=== PATIENT | female | born 1940 | race Caucasian/White ===

== ENCOUNTER 2016-04-24 11:16 | Day surgery (SDC) | payer MEDICARE ==
[2016-04-19 11:33] VITALS: BMI 23.3
[~2016-04-24 11:16] MED LIST: LACTATED RINGERS 1,000 ML IV SCH
[2016-04-24] MEDS ORDERED: LIDOCAINE 1% 20 ML VIAL (10MG/ML) FOR IV START INTRADERMA ONE (11:43)
--- NOTE | 2016-04-24 12:33 | CT ---
EXAMINATION TYPE: CT Chest malissa Pretty Protocol DATE OF EXAM: 04/24/2016 12:18 PM COMPARISON: NONE HISTORY: Solitary Lung Nodule CT DLP: [address] of the chest was performed with lung and mediastinal window settings submitted. The la ck of contrast limits evaluation of the vascular, mediastinal and parenchymal structures including th e upper abdomen. LUNGS: The lungs are hyperinflated compatible with COPD. Mild upper lobe emphysematous changes and bi apical scarring. Mild scattered subpleural fibrosis. Small focal infiltrate within the lingula adjace nt to the cardiac border. 3 mm subpleural pulmonary nodule right upper lobe as well as right middle l obe. No additional nodules identified with certainty. MEDIASTINUM/GABI: Thoracic aorta is of normal caliber with limited evaluation given lack of contrast . Atheromatous changes thoracic aorta. The heart is not enlarged. No evidence for mediastinal mass. No lymph nodes greater than 1cm. UPPER ABDOMEN: Renal cystic changes. Small sliding-type hiatal hernia. OTHER: No significant other abnormality. IMPRESSION: 1. Scattered emphysematous changes. 2. Small focal infiltrate within the lingula. Scattered nonspecific subpleural nodularity.
[2016-04-24] MEDS ORDERED: NEOSTIGMINE 1 MG/ML 10 ML VIAL ONE (12:59)
[2016-04-24] MEDS ORDERED: PROPOFOL 10 MG/ML 20 ML VIAL IV ONE (12:59)
[2016-04-24] MEDS ORDERED: SUCCINYLCHOLINE CHLORIDE 100 MG/5 ML SYR IV ONE (12:59)
[2016-04-24] MEDS ORDERED: ROCURONIUM BROMIDE 10 MG/ML 10 ML VIAL IV ONE (12:59)
[2016-04-24] MEDS ORDERED: GLYCOPYRROLATE 0.2 MG/ML 2 ML VIAL ONE (12:59)
[2016-04-24] MEDS ORDERED: fentaNYL (PF) 50 MCG/ML 2 ML AMP ONE (12:59)
[2016-04-24] MEDS ORDERED: LIDOCAINE 1% INJ 10MG/ML (20 ML MDV) ONE (12:59)
[2016-04-24] MEDS ORDERED: MIDAZOLAM 2 MG/2 ML VIAL ONE (12:59)
[2016-04-24] MEDS ORDERED: LACTATED RINGERS 1,000 ML IV ONE (14:26)
[2016-04-24 14:58] VITALS: TEMP 97.2
[2016-04-24 15:16] VITALS: RESP 16
--- NOTE | 2016-04-24 15:45 | XR ---
EXAMINATION TYPE: XR chest 1V portable DATE OF EXAM: 04/24/2016 3:05 PM COMPARISON: NONE INDICATION: Post left lingular biopsy TECHNIQUE: Single frontal view of the chest is obtained. FINDINGS: The heart size is normal. The pulmonary vasculature is normal. Infiltrate is present to the left lung base. Minimal infiltrate may be along the right base. A small left apical pneumothorax is present. Report was called to Dr. Peña by Dr. Redd by telepho ne 1540 hours 05/06/2016. IMPRESSION: 1. Left apical pneumothorax. 2. Left lower lobe infiltrate.
[2016-04-24 16:16] VITALS: BP 119/58; PULSE 72
--- NOTE | 2016-04-24 18:57 | PCN ---
PROCEDURE: Navigational bronchoscopy. It is done in the operating room under general anesthesia. PREOPERATIVE DIAGNOSIS: Mass, lingula. Rule out cancer. POSTOPERATIVE DIAGNOSIS: Mass, lingula. Rule out cancer. Procedure was done by Dr. Loomis and myself. Again it was done in the operating room under general anesthesia. Once the patient was adequately anesthetized by the regional environmental manager and the anesthesiologist, the bronchoscope was placed through the bronchoscope adapter connected to the endotracheal tube. Under electromagnetic navigational localization, biopsies were done in the lingula. We did at least 8 or 9 biopsies. Next, washes were done in the lingula. The patient seemed to tolerate the procedure well. There was minimal bleeding. There was no immediate complication. The patient was stable throughout the procedure. Afterward, the patient will have a chest x-ray to rule out pneumothorax. If everything is good, she can be discharged. Will follow up with her in the office.
[2016-04-24 20:35] LABS: RBC, Body Fluid 7100 /uL
== END 2016-04-24 16:40 | disposition home or self-care (01) ==
LOC: ORWHC2ENDO 11:16
PROVIDERS: ATTEND Internal Medicine Critical Care Medicine
DX: J93.9 Pneumothorax, unspecified (principal); R91.1 Solitary pulmonary nodule; R91.8 Other nonspecific abnormal finding of lung field; J44.9 Chronic obstructive pulmonary disease, unspecified; F17.200 Nicotine dependence, unspecified, uncomplicated; E03.9 Hypothyroidism, unspecified; Z79.82 Long term (current) use of aspirin; Z79.899 Other long term (current) drug therapy
CPT/HCPCS: 87798 ×4; 87496; 87498; 87529 ×2; 88108; 88305; 89050; 87252; 87502 ×2; 87070; 87205; 87116; 87102; 87206; 71010; 71250; 31625; 31627; J2250; J2710; J2001; J3010; J0330; J2704; 31624

== ENCOUNTER 2018-11-20 15:28 | Inpatient (IN) | payer MEDICARE ==
[2018-11-20] MEDS: HEPARIN SOD,PORK IN 0.45% NACL 25,000 UNIT in 0.45% NACL 1 250ML.BAG IV SCH (16:09)
--- NOTE | 2018-11-20 16:09 | ED ---
Chest Pain HPI - General Chief Complaint: Chest Pain Stated Complaint: chest pressure Time Seen by Provider: 11/20/18 15:35 Source: patient, EMS Limitations: no limitations - History of Present Illness Initial Comments: Patient is a 78-year-old female who is a care from [facility] for chest pain. Patient reports that she has had intermittent chest pain since yesterday. Denies a history of cardiac disease. At [facility] she did undergo laboratory studies and a chest x-ray. It was found that her troponin was 4.6. EKG demonstrated slight ST elevation however nothing that the physician felt he could call as a STEMI. He did call and discuss the case with Dr. López who in turn discussed the case with Dr. Perez prior to hospital arrival. Patient was heparinized and transferred in pain-free condition. The patient does arrive and states that she is pain-free at this time. Denies a history of cough, congestion, fevers or chills. No nausea or vomiting. No ripping or tearing sensation to her back. No history of DVTs or PEs. Denies any shortness of breath. No other alleviating, precipitating or modifying factors - Related Data Home Medications Medication Instructions Recorded Confirmed Aspirin 81 mg PO AC-LUNCH 04/19/16 11/20/18 Calcium Carbonate [Calcium] 1,200 mg PO AC-LUNCH 11/20/18 11/20/18 Cholecalciferol (Vitamin D3) 2,000 unit PO AC-LUNCH 11/20/18 11/20/18 [Vitamin D3] Levothyroxine Sodium [Synthroid] 112 mcg PO DAILY 11/20/18 11/20/18 Previous Rx's Medication Instructions Recorded Atorvastatin [Lipitor] 40 mg PO DAILY 30 Days #30 tab 11/23/18 Clopidogrel [Plavix] 75 mg PO DAILY 30 Days #30 tab 11/23/18 Losartan [Cozaar] 12.5 mg PO HS 30 Days #30 tab 11/23/18 Metoprolol Tartrate [Lopressor] 12.5 mg PO BID 60 Days #60 tab 11/23/18 Allergies Allergy/AdvReac Type Severity Reaction Status Date / Time No Known Allergies Allergy Verified 11/20/18 16:22 Review of Systems ROS Statement: Those systems with pertinent positive or pertinent negative responses have been documented in the HPI. ROS Other: All systems not noted in ROS Statement are negative. EKG Findings - EKG Comments: EKG Findings:: EKG demonstrates a sinus bradycardia with a ventricular rate of 55. GA interval 186. QRS E4. QTC 438. There is some minimal ST elevation in leads 2, 3, aVF. No reciprocal changes. Past Medical History Past Medical History: COPD, Deep Vein Thrombosis (DVT), Thyroid Disorder Additional Past Medical History / Comment(s): emphysema and area in lung found on ct scan,freq cough,hx dvt lt leg approx 10 yrs History of Any Multi-Drug Resistant Organisms: None Reported Past Surgical History: Tonsillectomy, Tubal Ligation Additional Past Surgical History / Comment(s): nodules removed from thryoid,jey cataracts Past Anesthesia/Blood Transfusion Reactions: No Reported Reaction Additional Past Anesthesia/Blood Transfusion Reaction / Comment(s): no hx blood transfusion Past Psychological History: No Psychological Hx Reported Smoking Status: Current every day smoker Past Alcohol Use History: None Reported Past Drug Use History: None Reported - Past Family History Mother Family Medical History: Coronary Artery Disease (CAD), Hypertension Additional Family Medical History / Comment(s): CABG,breathing problems, with complications of fx back Daughter(s) Family Medical History: Myocardial Infarction ([place]) Additional Family Medical History / Comment(s): at age 45 Father Additional Family Medical History / Comment(s): alcoholism General Exam Limitations: no limitations General appearance: alert, in no apparent distress Head exam: Present: atraumatic, normocephalic, normal inspection Eye exam: Present: normal appearance, PERRL, EOMI. Absent: scleral icterus, conjunctival injection, periorbital swelling ENT exam: Present: normal exam, mucous membranes moist Neck exam: Present: normal inspection. Absent: tenderness, meningismus, lymphadenopathy Respiratory exam: Present: normal lung sounds bilaterally. Absent: respiratory distress, wheezes, rales, rhonchi, stridor Cardiovascular Exam: Present: regular rate, normal rhythm, normal heart sounds. Absent: systolic murmur, diastolic murmur, rubs, gallop, clicks GI/Abdominal exam: Present: soft, normal bowel sounds. Absent: distended, tenderness, guarding, rebound, rigid Extremities exam: Present: normal inspection, full ROM, normal capillary refill. Absent: tenderness, pedal edema, joint swelling, calf tenderness Back exam: Present: normal inspection Neurological exam: Present: alert, oriented X3, CN II-XII intact Psychiatric exam: Present: normal affect, normal mood Skin exam: Present: warm, dry, intact, normal color. Absent: rash Course Vital Signs 11/20/18 11/20/18 11/20/18 15:30 16:00 17:26 Temperature 98.6 F Pulse Rate 61 57 L 57 L Respiratory 18 18 18 Rate Blood Pressure 143/60 143/60 143/62 O2 Sat by Pulse 98 99 97 Oximetry 11/20/18 18:12 Temperature 98.6 F Pulse Rate 57 L Respiratory 18 Rate Blood Pressure 143/62 O2 Sat by Pulse 97 Oximetry Chest Pain MDM - MDM Upon arrival the patient is placed into room 4. A thorough history and physical exam was performed. I did obtain laboratory studies.. I reviewed the patient's transfer record. Dr. López does present to the emergency room and evaluates the patient. He does talk to Dr. Perez who states the patient needs to remain on a heparin drip. I do reordered heparin drip. Troponin on reevaluation here shows a value of 2.8. This is improved from patient's value of 4.[address] admission orders. The patient was transported to the floor in stable condition Disposition Clinical Impression: Acute non-ST elevation myocardial infarction (NSTEMI), Chest pain Disposition: ADMITTED IP TO THIS HOSP Condition: Stable Is patient prescribed a controlled substance at d/c from ED?: No Decision to Admit Reason: Admit from EC Decision Date: 11/20/18 Decision Time: 17:30
[2018-11-20] MEDS ORDERED: HEPARIN SODIUM,PORCINE 5,000 UNIT/ML 1 ML VIAL IV PRN (16:11)
[2018-11-20 16:12] LABS: Basophils # (A) 0.2 k/uL (0-0.2); Basophils % (A) 3 %; Eosinophils # (A) 0.1 k/uL (0-0.7); Eosinophils % (A) 2 %; HCT 41.5 % (34.0-46.0); HGB 13.4 gm/dL (11.4-16.0); Lymphocytes # (A) 2.3 k/uL (1.0-4.8); Lymphocytes % (A) 34 %; MCH 31.2 pg (25.0-35.0); MCHC 32.4 g/dL (31.0-37.0); MCV 96.4 fL (80.0-100.0); Mean Platelet Volume 7.1; Monocytes # (A) 0.4 k/uL (0-1.0); Monocytes % (A) 6 %; Neutrophils # (A) 3.7 k/uL (1.3-7.7); Neutrophils % (A) 55 %; Platelet Count 198 k/uL (150-450); RDW 13.8 % (11.5-15.5); WBC 6.8 k/uL (3.8-10.6)
[2018-11-20] MEDS ORDERED: ATORVASTATIN 80 MG TAB PO STA (16:28)
--- NOTE | 2018-11-20 16:35 | P.HPIM ---
History of Present Illness Patient is a pleasant 78-year-old female came in with complaints of chest pressure on and off last for few minutes to about an hour nonexertional no radiation no associated shortness of breath or diaphoresis patient did feel like she has hot flashes. Patient was seen in [facility] found to have ST elevation of about 0.5-1 mm in inferior lead lead 3. Patient is being heparinized did discuss with the cardiology. Patient does smoke about 10-15 cigarettes a day. Patient's TSH is the elevated patient was recently started on levothyroxine patient believes she has a blood clot in the lung and the patient had history of DVT in the past 3 years ago not on any anti-correlation at this time. Review of Systems REVIEW OF SYSTEMS: CONSTITUTIONAL: No fever, no malaise, no fatigue. HEENT: No recent visual problems or hearing problems. Denied any sore throat. CARDIOVASCULAR: No orthopnea, PND, no palpitations, no syncope. PULMONARY: No shortness of breath, no cough, no hemoptysis. GASTROINTESTINAL: No diarrhea, no nausea, no vomiting, no abdominal pain. NEUROLOGICAL: No headaches, no weakness, no numbness. HEMATOLOGICAL: Denies any bleeding or petechiae. GENITOURINARY: Denies any burning micturition, frequency, or urgency. MUSCULOSKELETAL/RHEUMATOLOGICAL: Denies any joint pain, swelling, or any muscle pain. ENDOCRINE: Denies any polyuria or polydipsia. The rest of the 14-point review of systems is negative. Past Medical History Past Medical History: COPD, Deep Vein Thrombosis (DVT), Thyroid Disorder Additional Past Medical History / Comment(s): emphysema and area in lung found on ct scan,freq cough,hx dvt lt leg approx 10 yrs History of Any Multi-Drug Resistant Organisms: None Reported Past Surgical History: Tonsillectomy, Tubal Ligation Additional Past Surgical History / Comment(s): nodules removed from thryoid,jey cataracts Past Anesthesia/Blood Transfusion Reactions: No Reported Reaction Additional Past Anesthesia/Blood Transfusion Reaction / Comment(s): no hx blood transfusion Past Psychological History: No Psychological Hx Reported Smoking Status: Current every day smoker Past Alcohol Use History: None Reported Past Drug Use History: None Reported - Past Family History Mother Family Medical History: Coronary Artery Disease (CAD), Hypertension Additional Family Medical History / Comment(s): CABG,breathing problems, with complications of fx back Daughter(s) Family Medical History: Myocardial Infarction ([place]) Additional Family Medical History / Comment(s): at age 45 Father Additional Family Medical History / Comment(s): alcoholism Medications and Allergies Home Medications Medication Instructions Recorded Confirmed Type Aspirin 81 mg PO AC-LUNCH 04/19/16 11/20/18 History Calcium Carbonate [Calcium] 1,200 mg PO AC-LUNCH 11/20/18 11/20/18 History Cholecalciferol (Vitamin D3) 2,000 unit PO AC-LUNCH 11/20/18 11/20/18 History [Vitamin D3] Levothyroxine Sodium [Synthroid] 112 mcg PO DAILY 11/20/18 11/20/18 History Allergies Allergy/AdvReac Type Severity Reaction Status Date / Time No Known Allergies Allergy Verified 11/20/18 16:22 Physical Exam Vitals: Vital Signs Temp Pulse Resp BP Pulse Ox 11/20/18 16:00 57 L 18 143/60 99 11/20/18 15:30 98.6 F 61 18 143/60 98 Intake and Output 11/20/18 11/20/18 11/20/18 06:59 14:59 22:59 Other: Weight 65.771 kg PHYSICAL EXAMINATION: GENERAL: The patient is alert and oriented x3, not in any acute distress. Well developed, well nourished. HEENT: Pupils are round and equally reacting to light. EOMI. No scleral icterus. No conjunctival pallor. Normocephalic, atraumatic. No pharyngeal erythema. No thyromegaly. CARDIOVASCULAR: S1 and S2 present. No murmurs, rubs, or gallops. PULMONARY: Chest is clear to auscultation, no wheezing or crackles. ABDOMEN: Soft, nontender, nondistended, normoactive bowel sounds. No palpable organomegaly. MUSCULOSKELETAL: No joint swelling or deformity. EXTREMITIES: No cyanosis, clubbing, or pedal edema. NEUROLOGICAL: Gross neurological examination did not reveal any focal deficits. SKIN: No rashes. Results CBC & Chem 7: 11/20/18 16:00 Assessment and Plan Plan: -Acute non-ST elevation myocardial infarction: Patient will be heparinized repeat EKG close monitoring, Nitropaste. Patient's heart rate is in 50s because of which I'm not in her on the briana. Patient received [facility] aspirins at [facility]. -Nicotine abuse: Counseling was provided -Hypothyroidism patient was recently started on levothyroxine which will be resumed -History of DVT in the past presently not on any anticoagulation -COPD without any acute exacerbation
[2018-11-20] MEDS ORDERED: NITROGLYCERIN 0.1MG/HR PATCH TRANSDERM ONE (16:45)
[2018-11-20] MEDS ORDERED: NALOXONE 0.4 MG/ML 1 ML VIAL IV PRN (17:31)
[2018-11-20 17:49] LABS: ALT 20 U/L (9-52); AST 61 U/L (14-36); African American GFR (CKD) >90 (>60 ml/min/1.73 sqM); Albumin 3.7 g/dL (3.5-5.0); Alkaline Phosphatase 55 U/L (38-126); Anion Gap 5 mmol/L; Blood Urea Nitrogen 14 mg/dL (7-17); Calcium 8.5 mg/dL (8.4-10.2); Carbon Dioxide 27 mmol/L (22-30); Chloride 106 mmol/L (98-107); Glucose 93 mg/dL (74-99); Non-African American GFR(CKD) 86 (>60 ml/min/1.73 sqM); Sodium 138 mmol/L (137-145); Total Bilirubin 0.6 mg/dL (0.2-1.3); Total Protein 6.8 g/dL (6.3-8.2)
[2018-11-20 17:55] LABS: Potassium 4.7 mmol/L (3.5-5.1)
[2018-11-20 18:47] LABS: T4, Free (Free Thyroxine) 1.28 ng/dL (0.78-2.19)
[2018-11-21] MEDS: LEVOTHYROXINE 112 MCG TAB PO SCH (06:30)
[2018-11-21 06:32] LABS: Basophils % (A) 0 %; Eosinophils % (A) 0 %; HCT 39.8 % (34.0-46.0); HGB 13.1 gm/dL (11.4-16.0); Lymphocytes # (A) 1.5 k/uL (1.0-4.8); Lymphocytes % (A) 19 %; MCV 97.1 fL (80.0-100.0); Mean Platelet Volume 6.2; Monocytes # (A) 0.6 k/uL (0-1.0); Monocytes % (A) 8 %; Neutrophils # (A) 5.9 k/uL (1.3-7.7); Neutrophils % (A) 72 %; Platelet Count 175 k/uL (150-450); RDW 13.6 % (11.5-15.5); WBC 8.1 k/uL (3.8-10.6)
[2018-11-21 07:22] LABS: African American GFR (CKD) >90 (>60 ml/min/1.73 sqM); Anion Gap 4 mmol/L; Blood Urea Nitrogen 14 mg/dL (7-17); Calcium 8.2 mg/dL (8.4-10.2); Carbon Dioxide 27 mmol/L (22-30); Chloride 106 mmol/L (98-107); Glucose 109 mg/dL (74-99); Non-African American GFR(CKD) 85 (>60 ml/min/1.73 sqM); Potassium 4.3 mmol/L (3.5-5.1); Sodium 137 mmol/L (137-145)
[2018-11-21] MEDS: METOPROLOL TARTRATE 12.5 MG TAB PO SCH ×2 (08:00→21:11)
[2018-11-21] MEDS: ATORVASTATIN 40 MG TAB PO SCH (08:00)
[2018-11-21] MEDS: ASPIRIN 81 MG PO SCH (08:00)
--- NOTE | 2018-11-21 08:31 | P.PN ---
Subjective 78-year-old presents female admitted for non-ST elevation myocardial probably inferior wall FL, will undergo cardiac catheterization today. Extensive Schmitz cessation counseling was provided today as well. Constitutional: Denied any fatigue denied any fever. Cardio vascular: denied any chest pain, palpitations Gastrointestinal denied any nausea vomiting Pulmonary: Denied any shortness of breath cough Neurologic denied any new focal deficits All inpatient medications were reviewed and appropriate changes in these medications as dictated in the interval history and assessment and plan. Objective - Vital Signs Vital signs: Vital Signs Temp 99 F 11/21/18 08:00 Pulse 61 11/21/18 08:00 Resp 18 11/21/18 08:00 BP 100/48 11/21/18 08:00 Pulse Ox 92 L 11/21/18 08:00 Intake & Output 11/20/18 11/21/18 11/21/18 18:59 06:59 18:59 Intake Total 281.302 Balance 281.302 Weight 65.771 kg 65.2 kg Intake: Intake, IV Titration 61.302 Amount Heparin Sod,Pork in 0.45% 61.302 NaCl 25,000 unit In 0.45 % NaCl 1 250ml.bag @ 12 UNITS/KG/HR 7.893 mls/hr IV .Q24H CORRINE Rx#: [id number] Oral 220 Other: Voiding Method Toilet # Voids 2 - Exam PHYSICAL EXAMINATION: GENERAL: The patient is alert and oriented x3, not in any acute distress. Well developed, well nourished. HEENT: Pupils are round and equally reacting to light. EOMI. No scleral icterus. No conjunctival pallor. Normocephalic, atraumatic. No pharyngeal erythema. No thyromegaly. CARDIOVASCULAR: S1 and S2 present. No murmurs, rubs, or gallops. PULMONARY: Chest is clear to auscultation, no wheezing or crackles. ABDOMEN: Soft, nontender, nondistended, normoactive bowel sounds. No palpable organomegaly. MUSCULOSKELETAL: No joint swelling or deformity. EXTREMITIES: No cyanosis, clubbing, or pedal edema. NEUROLOGICAL: Gross neurological examination did not reveal any focal deficits. SKIN: No rashes. - Labs CBC & Chem 7: 11/21/18 06:06 11/21/18 06:06 Labs: Abnormal Lab Results - Last 24 Hours (Table) 11/20/18 11/20/18 11/20/18 Range/Units 17:02 17:02 22:59 APTT 37.8 H (22.0-30.0) sec Glucose (74-99) mg/dL Calcium (8.4-10.2) mg/dL AST 61 H (14-36) U/L Troponin I 2.830 H* (0.000-0.034) ng/mL TSH 11.000 H (0.465-4.680) mIU/L 11/20/18 11/21/18 11/21/18 Range/Units 22:59 06:06 06:06 APTT 66.2 H (22.0-30.0) sec Glucose 109 H (74-99) mg/dL Calcium 8.2 L (8.4-10.2) mg/dL AST (14-36) U/L Troponin I 3.150 H* (0.000-0.034) ng/mL TSH (0.465-4.680) mIU/L Assessment and Plan Plan: -Acute non-ST elevation myocardial infarction: Patient will be heparinized repeat EKG close monitoring, Nitropaste. Will undergo cardiac catheterization as mentioned above and the echocardiogram will be obtained -Nicotine abuse: Counseling was provided -Hypothyroidism patient was recently started on levothyroxine which will be resumed patient's TSH remains high in expected to improve in few weeks -History of DVT in the past presently not on any anticoagulation -COPD without any acute exacerbation
[2018-11-21] MEDS ORDERED: ASPIRIN 325 MG TAB PO SCH (09:00)
--- NOTE | 2018-11-21 10:22 | XR ---
EXAMINATION TYPE: XR chest 1V portable DATE OF EXAM: 11/21/2018 HISTORY: sob. REFERENCE: Previous study dated 11/20/2018. FINDINGS: Lung volumes are prominent. There is some scarring or atelectasis present at the left lung base. Lungs otherwise clear. Pleural spaces are clear. IMPRESSION: NO SIGNIFICANT INTERVAL CHANGE IN THE APPEARANCE OF THE CHEST.
--- NOTE | 2018-11-21 11:02 | CONS ---
CONSULTATION Enriqueta Jones is a 78-year-old lady who smokes about 1 to 2 packs a day. She does not have any significant past medical history other than a recent diagnosis of hyperthyroidism for which she received radioiodine therapy and is now being supplemented with Synthroid. She is slightly hypothyroid. She was transferred from [place] after being seen with an abnormal EKG and troponin elevation. This lady had does not have any major medical problems. She considers herself healthy, but smokes on a regular basis. On last Friday about more than 48 hours ago while she was watching TV and playing with the grand kids, she developed chest pressure that lasted pretty much all day and also somewhat into as well. Because of the ongoing chest pressure, she did not seek any medical attention. She thought it will go away on its own. Subsequently on Friday, she went and saw her primary care physician who performed the EKG and transferred her to [facility]. It appears that she had an infarction involving the inferior wall on Friday that is more than 48 hours ago. She is pain free at this time. She is comfortable resting but EKG clearly shows Q- waves in inferior leads with the ST abnormalities suggestive of a recent subacute infarction. She had some chest pain yesterday suggestive of post infarction angina, but right now she is comfortable and resting. PAST MEDICAL HISTORY: 1. Hyperthyroidism status post radioiodine therapy on Synthroid. 2. History of smoking and COPD. MEDICATIONS: Medications at home include Synthroid 112 mcg daily, vitamin supplements, and aspirin 81 mg daily. ALLERGIES: None. REVIEW OF SYSTEMS: Unremarkable other than the above-mentioned facts. PHYSICAL EXAMINATION: On examination, blood pressure is 112/78, pulse rate is 64 per minute, regular. HEENT: Unremarkable. Fundus was not examined by me. Neck is supple. No JVD. I do not hear a carotid bruit. Heart exam reveals S1, S2 heard normally. There is no significant murmur or gallop. Lungs are clear. Abdomen is soft, nontender. Lower extremities reveal normal pulses. No edema. Central nervous system is normal. EKG revealed a sinus rhythm, evidence of inferior AR with ST changes suggestive of a subacute inferior wall myocardial infarction with minor right ventricular conduction delay. Troponin level initially was 4. It is now 2.8 and 3.1, suggestive of recent AR. D- dimer was normal. IMPRESSION: 1. Subacute inferior wall myocardial infarction with evidence of Q-waves and post infarction angina. 2. Hyperthyroidism, status post radioiodine therapy, now on Synthroid. 3. History of smoking. RECOMMENDATIONS: I am recommending that we continue the IV heparin drip. I will add Lopressor 12.5 mg b.i.d., losartan 25 mg daily, Lipitor 40 mg daily, perform an echocardiogram, reduce aspirin to 81 mg daily, and given her post infarction angina, I will perform coronary angiography either today or tomorrow. Discussed my thoughts in detail with the patient, explained her the rationale, risks, benefits, options related to cardiac cath. She understands all details and wishes to proceed. MMODL / IJN: [id number] /
[2018-11-21] MEDS ORDERED: IV FLUID CONTINUATION 950 ML IV ONE (12:54)
[2018-11-21] MEDS ORDERED: MIDAZOLAM PF (FBP) 2 MG/2 ML VIAL IVP ONE (12:58)
[2018-11-21] MEDS ORDERED: LIDOCAINE 1% INJ 10MG/ML (20 ML MDV) SQ ONE ×2 (13:01→13:04)
[2018-11-21] MEDS ORDERED: VERAPAMIL SYRINGE (5 MG/10 ML) INTRAARTER ONE (13:05)
[2018-11-21] MEDS ORDERED: HEPARIN SODIUM 1,000 UN/ML (10ML VL) IV ONE (13:06)
[2018-11-21] MEDS ORDERED: BIVALIRUDIN BOLUS 250 MG/50 ML IV ONE (13:30)
[2018-11-21] MEDS ORDERED: BIVALIRUDIN 250 MG in SODIUM CHLORIDE 0.9% 50 ML IV ONE (13:31)
[2018-11-21] MEDS ORDERED: IOPAMIDOL-370 150ML BTL INJ ONE (13:32)
[2018-11-21] MEDS ORDERED: NITROGLYCERIN 1000MCG/10ML SYRINGE INTRACORON ONE (13:43)
[2018-11-21] MEDS ORDERED: IOPAMIDOL-370 50ML BTL INJ ONE (13:48)
[2018-11-21] MEDS ORDERED: CLOPIDOGREL 75 MG TAB ONE (13:49)
[2018-11-21] MEDS ORDERED: CLOPIDOGREL 75 MG TAB PO ONE (13:50)
--- NOTE | 2018-11-21 13:58 | P.CNPUL ---
History of Present Illness Consult date: 11/21/18 Requesting physician: Shira López Reason for consult: dyspnea Chief complaint: Chest pressure, shortness of breath History of present illness: This is a very pleasant 78-year-old female patient who follows with CAMDEN Curiel. She has a history of DVT, hypothyroidism, chronic obstructive pulmonary disease, chronic and ongoing heavy tobacco dependence. She had been seen by Dr. Peña in the past. In 2017 she was found to have bilateral upper lobe nodules and she did undergo navigational bronchoscopy with biopsies that were negative for malignancy. There was still some suspicion and he ordered a PET scan which was negative regarding the lungs however there were uptake in the left kidney suspicious for renal cell carcinoma as well as in the left ovary and she was recommended both urology and oncology follow-up. He did give her a copy of the PET scan. She did not return to our office since August 2016. She was transferred here to the emergency room from [facility] yesterday with intermittent chest pain that started 2 days prior to her arrival. Labs and [place] revealed a troponin of 4.[address] elevation but not significant to be called a STEMI. She was placed on heparin and transferred here for the same. She had been seen and evaluated by cardiology and was felt to have had a inferior wall myocardial infarction greater than 48 hours ago. She is seen today in consultation on the selective care unit. She is currently awake and alert in no acute distress. Denies any worsening shortness of breath, cough or congestion. Chest x-ray shows some scarring versus atelectasis in the left lung base otherwise clear. White count 8.1. Hemoglobin 13.1. Creatinine 0.68. Troponin 2.83, 3.15. TSH 11.00. Free T4 1 0.28. She is currently noth ing by mouth for pending cardiac catheterization. Review of Systems REVIEW OF SYSTEMS: CONSTITUTIONAL: Denies any recent significant weight loss or weight gain. EYES: Denies change in vision. EARS, NOSE, MOUTH, THROAT: Denies headaches, denies sore throat. CARDIOVASCULAR: Positive for chest pain, no palpitations or syncopal episodes. RESPIRATORY: Positive for shortness of breath, cough, congestion no hemoptysis. GASTROINTESTINAL: Denies change in appetite, denies abdominal pain GENITOURINARY: Denies hematuria, denies infections. MUSKULOSKELETAL: Denies pain, denies swelling. INTEGUMENTARY: Denies rash, denies eczema. NEUROLOGICAL: Denies recent memory loss, no recent seizure activity. PSYCHIATRIC: Denies anxiety, denies depression. HEMATOLOGIC/LYMPHATIC: Denies anemia, denies enlarged lymph nodes. Past Medical History Past Medical History: COPD, Deep Vein Thrombosis (DVT), Thyroid Disorder Additional Past Medical History / Comment(s): emphysema and area in lung found on ct scan,freq cough,hx dvt lt leg approx 10 yrs History of Any Multi-Drug Resistant Organisms: None Reported Past Surgical History: Tonsillectomy, Tubal Ligation Additional Past Surgical History / Comment(s): nodules removed from thryoid,jey cataracts Past Anesthesia/Blood Transfusion Reactions: No Reported Reaction Additional Past Anesthesia/Blood Transfusion Reaction / Comment(s): no hx blood transfusion Past Psychological History: No Psychological Hx Reported Smoking Status: Current every day smoker Past Alcohol Use History: None Reported Past Drug Use History: None Reported - Past Family History Mother Family Medical History: Coronary Artery Disease (CAD), Hypertension Additional Family Medical History / Comment(s): CABG,breathing problems, with complications of fx back Daughter(s) Family Medical History: Myocardial Infarction ([place]) Additional Family Medical History / Comment(s): at age 45 Father Additional Family Medical History / Comment(s): alcoholism Medications and Allergies Home Medications Medication Instructions Recorded Confirmed Type Aspirin 81 mg PO AC-LUNCH 04/19/16 11/20/18 History Calcium Carbonate [Calcium] 1,200 mg PO AC-LUNCH 11/20/18 11/20/18 History Cholecalciferol (Vitamin D3) 2,000 unit PO AC-LUNCH 11/20/18 11/20/18 History [Vitamin D3] Levothyroxine Sodium [Synthroid] 112 mcg PO DAILY 11/20/18 11/20/18 History Allergies Allergy/AdvReac Type Severity Reaction Status Date / Time No Known Allergies Allergy Verified 11/20/18 16:22 Physical Exam Vitals: Vital Signs Temp Pulse Pulse Resp BP BP Pulse Ox 11/21/18 12:00 97.2 F L 65 18 97/56 94 L 11/21/18 08:00 99 F 61 18 100/48 92 L 11/21/18 04:34 97.8 F 66 18 93/46 94 L 11/20/18 23:57 98.1 F 61 16 112/78 95 11/20/18 20:20 98.2 F 79 20 126/78 95 11/20/18 20:11 98.2 F 79 18 126/78 96 11/20/18 18:12 98.6 F 57 L 18 143/62 97 11/20/18 17:26 57 L 18 143/62 97 11/20/18 16:00 57 L 18 143/60 99 11/20/18 15:30 98.6 F 61 18 143/60 98 Intake and Output 11/20/18 11/21/18 11/21/18 22:59 06:59 14:59 Intake Total 220 61.302 Balance 220 61.302 Intake: Intake, IV Titration 61.302 Amount Heparin Sod,Pork in 0.45% 61.302 NaCl 25,000 unit In 0.45 % NaCl 1 250ml.bag @ 12 UNITS/KG/HR 7.893 mls/hr IV .Q24H CORRINE Rx#: [id number] Oral 220 Other: Voiding Method Toilet Toilet Toilet # Voids 2 0 Weight 65.771 kg 65.2 kg GENERAL EXAM: Alert, pleasant 78-year-old female patient, comfortable in no apparent distress. On room air. HEAD: Normocephalic. EYES: Normal reaction of pupils, equal size. NOSE: Clear with pink turbinates. THROAT: No erythema or exudates. NECK: No masses, no JVD. CHEST: No chest wall deformity. LUNGS: Equal air entry with no crackles, wheeze, rhonchi or dullness. CVS: S1 and S2 normal with no audible murmur, regular rhythm. ABDOMEN: No hepatosplenomegaly, normal bowel sounds, no guarding or rigidity. SPINE: No scoliosis or deformity SKIN: No rashes CENTRAL NERVOUS SYSTEM: No focal deficits, tone is normal in all 4 extremities. EXTREMITIES: There is no peripheral edema. No clubbing, no cyanosis. Peripheral pulses are intact. Results - Laboratory Findings CBC and BMP: 11/21/18 06:06 11/21/18 06:06 PT/INR, D-dimer D-Dimer 0.57 mg/L FEU (<0.60) 11/20/18 16:00 Abnormal lab findings: Abnormal Labs 11/20/18 11/20/1819 17:02 17:02 22:59 APTT 37.8 H Glucose Calcium AST 61 H Troponin I 2.830 H* TSH 11.000 H 11/20/18 11/21/18 11/21/18 22:59 06:06 06:06 APTT 66.2 H Glucose 109 H Calcium 8.2 L AST Troponin I 3.150 H* TSH - Diagnostic Findings Chest x-ray: image reviewed Assessment and Plan Assessment: Impression: #1 Chest pain and a patient found to have a subacute inferior wall myocardial infarction with evidence of Q waves and post infarction angina. #2 Chronic and ongoing heavy tobacco dependence. #3 History of bilateral pulmonary nodules status post navigational bronchoscopy with biopsies negative for malignancy. PET scan in 2017 revealed no suspicious uptake in the lungs. #4 PET positive uptake in the left kidney suspicious for renal cell carcinoma in 2017. #5 PET positive uptake in the left ovary in 2017. #6 Hypothyroidism status post radioiodine therapy and maintained on Synthroid. Plan: The patient was seen and evaluated by Dr. Ramirez. She is currently stable from the pulmonary standpoint. Cardiac catheterization pending. She is educated regarding the importance of complete smoking cessation. NicoDerm patch will be offered. She should follow-up in our office post discharge once recovered and have repeat pulmonary function testing to evaluate the severity of her suspected COPD and make recommendations for her maintenance inhalers. In the interim, we'll continue to follow make further recommendations based on her clinical status. I, the cosigning physician, performed a history & physical examination of the patient. Lungs sounds are clear, diminished. Maintaining good O2 saturations in the 90s on room air. I discussed the assessment and plan of care with my nurse practitioner, Cari Loomis. I attest to the above consultation as dictated by her. Time with Patient: Greater than 30
[2018-11-21] MEDS: SODIUM CHLORIDE 0.9% 1,000 ML IV SCH (14:00)
--- NOTE | 2018-11-21 15:59 | CC ---
CARDIAC CATHETERIZATION REPORT DATE OF SERVICE: 11/21/2018 PROCEDURE: 1. Left heart catheterization and coronary angiography. 2. PTCA and stenting of mid RCA with a drug-eluting stent with excellent result. PERFORMED BY: Dr. Orlando Perez. Moderate conscious sedation time was 50 minutes. Patient was administered Versed. Oxygen saturation, hemodynamics and EKG were monitored closely. CLINICAL INFORMATION: Mrs. Enriqueta Jones is a 78-year-old lady with a past medical history of hypothyroidism following radioiodine ablation of her hyperthyroid gland. She came into the hospital upon transfer from the [place] with an inferior wall recent AL with Q- waves and ST elevation and had post infarction angina. It appears that her infarction was probably on Friday at least 48 hours or more ago. She had chest pain and went to her primary care physician on Friday, was sent here after doing an EKG. She was evaluated by me this morning and because of episodes of ongoing chest pressure on and off, which seems to be post infarction angina, I recommended coronary angiography and intervention based on findings. Echo revealed an inferior wall hypokinesia with ejection fraction of 45%. The risks, benefits, options and rationale were explained to the patient and family. After due discussion, they agree and wished to proceed. PROCEDURE NOTE: Under local anesthesia and strict aseptic precautions, a 6-Yoruba introducer was placed in the right radial artery. Using a JL3.5 catheter, I performed selective coronary angiography of the left system. A guide catheter was used, a standard right Devi, for right coronary artery. Using the same right catheter I checked LV pressures but did not perform LV gram. I noted that there was a total occlusion of the mid RCA and proceeded to perform intervention in the same setting. Following the coronary angiography, I proceeded to perform PCI. CARDIAC CATHETERIZATION FINDINGS: The left ventricular end-diastolic pressure was about 11 mmHg without any gradient across the aortic valve. CORONARY ANGIOGRAPHY FINDINGS: LEFT MAIN CORONARY ARTERY: This is a short patent vessel that immediately bifurcates into LAD and circumflex. There is no significant disease in the left main coronary artery. It appears that the left main trifurcates to a ramus intermedius, LAD and circumflex actually. The ramus almost looks as if it is a high diagonal branch. LEFT ANTERIOR DESCENDING CORONARY ARTERY: Good caliber vessel extends along the anterior wall, supplies a sizable amount of myocardium. It gives off septal and diagonal branches. There is no significant disease in the entire LAD system. It is quite tortuous in the midportion, but has no significant disease. LEFT POSTERIOR CIRCUMFLEX CORONARY ARTERY: This is a nondominant vessel, gives off a single obtuse marginal that runs laterally, has about a 30% to 40% narrowing and then continuation of circumflex distally and AV groove branch. All of these have about 30% to 45% narrowing, but no significant disease. RAMUS INTERMEDIUS: This vessel has about a 40% stenosis in the proximal portion. Then the caliber improves and it runs laterally supplying a fair amount of myocardium. There is a 40% stenosis in the ramus intermedius branch. RIGHT CORONARY ARTERY: This is a dominant vessel, very ectatic in the beginning and there is an area of an ectasia in the proximal portion after which the caliber normalizes and gives off 2 acute marginal branches and there is total occlusion without antegrade flow. Left ventriculogram was not performed. FINAL IMPRESSION: This patient has total occlusion of mid RCA, this is a dominant vessel. Filling pressures are normal. No gradient across aortic valve. Left main, left anterior descending artery are free of significant disease. Ramus has a 40% lesion proximally and circumflex has 30% to 45% lesions of obtuse marginal branch and also continuation of circumflex. RECOMMENDATION: I recommended PCI of RCA and performed this in the same setting. PCI PROCEDURE DETAILS: Initially I tried a standard right Devi, but switched over to KRS catheter. With this I cannulated the right coronary artery and a run-through wire was used to cross the lesion. A 2.5 caliber 12 mm Trek balloon was used to pre-dilate the lesion. There was a decent flow noted. I then deployed a 12 mm long 2.75 caliber Xience drug-eluting stent at 12 atmospheres. Patient had mild chest discomfort. No new EKG changes. Excellent angiographic result without complication was achieved. The sheath was taken out and TR band applied as per protocol. Patient received 600 mg of Plavix and also received Angiomax bolus and infusion as per protocol. Excellent angiographic result without complication was achieved. Moderate conscious sedation time was 50 minutes. Patient was administered Versed. Oxygen saturation, hemodynamics and EKG were monitored closely. MMODL / IJN: [id number] /
--- NOTE | 2018-11-21 17:00 | ECHOF ---
Referral Reason:NSEMI, heart cath this afternoon MEASUREMENTS -------- HEIGHT: 157.5 cm WEIGHT: 65.8 kg BP: RVIDd: 2.7 cm (< 3.3) IVSd: 0.9 cm (0.6 - 1.1) LVIDd: 4.2 cm (3.9 - 5.3) LVPWd: 1.0 cm (0.6 - 1.1) IVSs: 1.5 cm LVIDs: 2.3 cm LVPWs: 1.6 cm LAESV Index (A-L): 17.81 ml/m Ao Diam: 3.1 cm (2.0 - 3.7) AV Cusp: 1.9 cm (1.5 - 2.6) LA Diam: 2.2 cm (2.7 - 3.8) MV EXCURSION: 15.965 mm (> 18.000) MV EF SLOPE: 67 mm/s (70 - 150) EPSS: 0.3 cm MV E Francisco Javier: 0.54 m/s MV DecT: 263 ms MV A Francisco Javier: 0.55 m/s MV E/A Ratio: 0.99 RAP: 5.00 mmHg RVSP: 8.86 mmHg TAPSE: 27.42 mm FINDINGS -------- Sinus rhythm. This was a technically good study. The left ventricular size is normal. Left ventricular wall thickness is normal. Overall left vent ricular systolic function is mildly impaired with, an EF between 45 %. Basal inferior LV wall motio n is hypokinetic. Mid inferior LV wall motion is hypokinetic. The right ventricle is normal in size. The left atrial size is normal. Normal LA size by volume 22+/-6 ml/m2. The right atrial size is normal. Interatrial and interventricular septum intact. The aortic valve is trileaflet and appears structurally normal. The mitral valve is normal. The mitral valve leaflets are mildly thickened. Mild mitral regurgita tion is present. The tricuspid valve appears structurally normal. Mild tricuspid regurgitation present. Right vent ricular systolic pressure is normal at < 35 mmHg. Trace/mild (physiologic) pulmonic regurgitation. The aortic root size is normal. Normal inferior vena cava with normal inspiratory collapse consistent with estimated right atrial pre ssure of 5 mmHg. There is no pericardial effusion. CONCLUSIONS -------- 1. Sinus rhythm. 2. This was a technically good study. 3. The left ventricular size is normal. 4. Left ventricular wall thickness is normal. 5. Overall left ventricular systolic function is mildly impaired with, an EF 45% . 6. Basal inferior LV wall motion is hypokinetic. 7. The right ventricle is normal in size. 8. The left atrial size is normal. 9. Normal LA size by volume 22+/-6 ml/m2. 10. The right atrial size is normal. 11. Interatrial and interventricular septum intact. 12. The aortic valve is trileaflet and appears structurally normal. 13. The mitral valve is normal. 14. The mitral valve leaflets are mildly thickened. 15. Mild mitral regurgitation is present. 16. The tricuspid valve appears structurally normal. 17. Mild tricuspid regurgitation present. 18. Right ventricular systolic pressure is normal at < 35 mmHg. 19. Trace/mild (physiologic) pulmonic regurgitation. 20. The aortic root size is normal. 21. Normal inferior vena cava with normal inspiratory collapse consistent with estimated right atrial pressure of 5 mmHg. 22. There is no pericardial effusion. BOILER TUBE BLOWER: Katie [facility] RDCS
[2018-11-21] MEDS: HEPARIN SOD,PORK IN 0.45% NACL 25,000 UNIT in 0.45% NACL 1 250ML.BAG IV SCH (18:50)
[2018-11-21] MEDS ORDERED: LOSARTAN 25 MG TAB PO SCH (21:00)
[2018-11-22] MEDS: SODIUM CHLORIDE 0.9% 1,000 ML IV SCH (04:32)
[2018-11-22 05:59] LABS: Basophils % (A) 0 %; Eosinophils % (A) 1 %; HCT 36.8 % (34.0-46.0); HGB 11.9 gm/dL (11.4-16.0); Lymphocytes # (A) 1.8 k/uL (1.0-4.8); Lymphocytes % (A) 32 %; MCH 32.6 pg (25.0-35.0); MCHC 32.4 g/dL (31.0-37.0); MCV 100.7 fL (80.0-100.0); Macrocytosis Slight; Mean Platelet Volume 7.3; Monocytes # (A) 0.5 k/uL (0-1.0); Monocytes % (A) 9 %; Neutrophils # (A) 3.2 k/uL (1.3-7.7); Neutrophils % (A) 56 %; Platelet Count 130 k/uL (150-450); RBC 3.66 m/uL (3.80-5.40); RDW 13.6 % (11.5-15.5); WBC 5.7 k/uL (3.8-10.6)
[2018-11-22 06:09] LABS: African American GFR (CKD) >90 (>60 ml/min/1.73 sqM); Anion Gap 3 mmol/L; Blood Urea Nitrogen 10 mg/dL (7-17); Calcium 8.2 mg/dL (8.4-10.2); Carbon Dioxide 25 mmol/L (22-30); Chloride 108 mmol/L (98-107); Glucose 90 mg/dL (74-99); Non-African American GFR(CKD) 87 (>60 ml/min/1.73 sqM); Potassium 3.9 mmol/L (3.5-5.1); Sodium 136 mmol/L (137-145)
[2018-11-22] MEDS: LEVOTHYROXINE 112 MCG TAB PO SCH (06:24)
[2018-11-22] MEDS: METOPROLOL TARTRATE 12.5 MG TAB PO SCH ×2 (08:07→20:46)
[2018-11-22] MEDS: CLOPIDOGREL 75 MG TAB PO SCH (08:07)
[2018-11-22] MEDS: ASPIRIN 81 MG PO SCH (08:07)
[2018-11-22] MEDS: ATORVASTATIN 40 MG TAB PO SCH (08:07)
--- NOTE | 2018-11-22 09:32 | P.PN ---
Subjective This is a pleasant 78-year-old female past medical history chronic nicotine dependence and hypothyroidism. She underwent cardiac catheterization yesterday in the setting of a non-ST elevated myocardial infarction cannot successful angioplasty of the mid RCA. Ejection fraction was noted to be 45% with inferior wall hypokinesia. She is seen and examined resting comfortably lying completely flat in bed in no acute distress. She denies symptoms of chest discomfort, shortness of breath, dizziness or palpitations. Currently maintaine d on losartan 25 mg at bedtime, Lopressor 25 mg twice a day, aspirin 81 mg daily, atorvastatin 40 mg daily and Plavix 75 mg daily. Losartan was held last night secondary to hypotension, patient was asymptomatic at the time. Blood pressure today 109/52 heart rate 71 afebrile maintaining oxygen saturation on room air. Laboratory data reviewed, WBC 5.7, hemoglobin 11.9, platelets 130, sodium 136, potassium 3.9, creatinine 0.62. GENERAL: Well-appearing, well-nourished and in no acute distress. NECK: Supple without JVD or thyromegaly. LUNGS: Breath sounds clear to auscultation bilaterally. Respiration equal and unlabored. No wheezes, rales or rhonchi. HEART: Regular rate and rhythm without murmurs, rubs or gallops. S1 and S2 heard. EXTREMITIES: Normal range of motion, no edema. No clubbing or cyanosis. Peripheral pulses intact. Right radial access site clean, dry and intact with no evidence of hematoma, bleeding or ecchymosis. ASSESSMENT Non-ST elevated myocardial infarction Thrombocytopenia Dyslipidemia Chronic nicotine dependence Ischemic cardiomyopathy Hypothyroidism PLAN Decreased losartan to 12.5 mg at bedtime. Advised her to slowly start to increase her activity and ambulation in the halls. We'll continue to monitor for an additional 24 hours. Smoking cessation recommended. Nurse Practitioner note has been reviewed, I agree with a documented findings and plan of care. Patient was seen and examined. Objective - Vital Signs Vital signs: Vital Signs Temp 98.4 F 11/22/18 08:00 Pulse 71 11/22/18 08:00 Resp 18 11/22/18 08:00 BP 109/52 11/22/18 08:00 Pulse Ox 95 11/22/18 08:00 Intake & Output 11/21/18 11/22/18 11/22/18 18:59 06:59 18:59 Intake Total 497 240 Balance 497 240 Weight 65.9 kg Intake: IV 497 Oral 240 Other: Voiding Method Toilet Toilet Toilet # Voids 1 1 - Labs CBC & Chem 7: 11/22/18 05:25 11/22/18 05:25 Labs: Abnormal Lab Results - Last 24 Hours (Table) 11/21/18 11/22/18 11/22/18 Range/Units 06:06 05:25 05:25 RBC 3.66 L (3.80-5.40) m/uL MCV 100.7 H (80.0-100.0) fL Plt Count 130 L (150-450) k/uL Sodium 136 L (137-145) mmol/L Chloride 108 H (98-107) mmol/L Calcium 8.2 L (8.4-10.2) mg/dL Troponin I 3.590 H* (0.000-0.034) ng/mL
--- NOTE | 2018-11-22 11:04 | P.PN ---
Subjective 78-year-old presents female admitted for non-ST elevation myocardial probably inferior wall [place], will undergo cardiac catheterization today. Extensive nicotine cessation counseling was provided today as well. 11/22/2018 Patient underwent cardiac catheterization and stenting of the right coronary artery. Patient had ejection fraction of 45% patient was started on losartan. patient is euvolemic Constitutional: Denied any fatigue denied any fever. Cardio vascular: denied any chest pain, palpitations Gastrointestinal denied any nausea vomiting Pulmonary: Denied any shortness of breath cough Neurologic denied any new focal deficits All inpatient medications were reviewed and appropriate changes in these medications as dictated in the interval history and assessment and plan. Objective - Vital Signs Vital signs: Vital Signs Temp 98.4 F 11/22/18 08:00 Pulse 71 11/22/18 08:00 Resp 18 11/22/18 08:00 BP 109/52 11/22/18 08:00 Pulse Ox 95 11/22/18 08:00 Intake & Output 11/21/18 11/22/18 11/22/18 18:59 06:59 18:59 Intake Total 497 240 Balance 497 240 Weight 65.9 kg Intake: IV 497 Oral 240 Other: Voiding Method Toilet Toilet Toilet # Voids 1 1 - Exam PHYSICAL EXAMINATION: GENERAL: The patient is alert and oriented x3, not in any acute distress. Well developed, well nourished. HEENT: Pupils are round and equally reacting to light. EOMI. No scleral icterus. No conjunctival pallor. Normocephalic, atraumatic. No pharyngeal erythema. No thyromegaly. CARDIOVASCULAR: S1 and S2 present. No murmurs, rubs, or gallops. PULMONARY: Chest is clear to auscultation, no wheezing or crackles. ABDOMEN: Soft, nontender, nondistended, normoactive bowel sounds. No palpable organomegaly. MUSCULOSKELETAL: No joint swelling or deformity. EXTREMITIES: No cyanosis, clubbing, or pedal edema. NEUROLOGICAL: Gross neurological examination did not reveal any focal deficits. SKIN: No rashes. - Labs CBC & Chem 7: 11/22/18 05:25 11/22/18 05:25 Labs: Abnormal Lab Results - Last 24 Hours (Table) 11/21/18 11/22/18 11/22/18 Range/Units 06:06 05:25 05:25 RBC 3.66 L (3.80-5.40) m/uL MCV 100.7 H (80.0-100.0) fL Plt Count 130 L (150-450) k/uL Sodium 136 L (137-145) mmol/L Chloride 108 H (98-107) mmol/L Calcium 8.2 L (8.4-10.2) mg/dL Troponin I 3.590 H* (0.000-0.034) ng/mL Assessment and Plan Plan: -Acute non-ST elevation myocardial infarction: Patient will be heparinized repeat EKG close monitoring, Nitropaste. She is status post cardiac catheterization and stenting of RCA In possible acute systolic dysfunction expected to improve down the line secondary to stunned myocardium for myocardial infarction, patient is on angiotensin receptor briana euvolemic not in heart failure exacerbation -Nicotine abuse: Counseling was provided -Hypothyroidism patient was recently started on levothyroxine which will be resumed patient's TSH remains high in expected to improve in few weeks -History of DVT in the past presently not on any anticoagulation -COPD without any acute exacerbation
--- NOTE | 2018-11-22 14:17 | P.PN ---
Subjective Progress Note Date: 11/22/18 Principal diagnosis: Subacute inferior wall myocardial infarction This is a very pleasant 78-year-old female patient who follows with CAMDEN Curiel. She has a history of DVT, hypothyroidism, chronic obstructive pulmonary disease, chronic and ongoing heavy tobacco dependence. She had been seen by Dr. Peña in the past. In 2017 she was found to have bilateral upper lobe nodules and she did undergo navigational bronchoscopy with biopsies that were negative for malignancy. There was still some suspicion and he ordered a PET scan which was negative regarding the lungs however there were uptake in the left kidney suspicious for renal cell carcinoma as well as in the left ovary and she was recommended both urology and oncology follow-up. He did give her a copy of the PET scan. She did not return to our office since August 2016. She was transferred here to the emergency room from [facility] yesterday with intermittent chest pain that started 2 days prior to her arrival. Labs and [place] revealed a troponin of 4.[address] elevation but not s ignificant to be called a STEMI. She was placed on heparin and transferred here for the same. She had been seen and evaluated by cardiology and was felt to have had a inferior wall myocardial infarction greater than 48 hours ago. She is seen today in consultation on the selective care unit. She is currently awake and alert in no acute distress. Denies any worsening shortness of breath, cough or congestion. Chest x-ray shows some scarring versus atelectasis in the left lung base otherwise clear. White count 8.1. Hemoglobin 13.1. Creatinine 0.68. Troponin 2.83, 3.15. TSH 11.00. Free T4 1 0.28. She is currently nothing by mouth for pending cardiac catheterization. Reevaluated today on 11/22/2018, patient is doing quite well, relatively asymptomatic. No cough no wheezing no shortness of breath and no chest pain. Patient is status post PTCA and stenting of the mid RCA with drug eluting stent with excellent results. Patient may be discharged home in the next 24 hours. Presently asymptomatic, and no active pulmonary symptoms no cough no wheezing no shortness of breath. Objective - Vital Signs Vital signs: Vital Signs Temp 98.4 F 11/22/18 11:22 Pulse 69 11/22/18 11:22 Resp 18 11/22/18 11:22 BP 107/64 11/22/18 11:22 Pulse Ox 96 11/22/18 11:22 Intake & Output 11/21/18 11/22/18 11/22/18 18:59 06:59 18:59 Intake Total 497 480 Output Total 500 Balance 497 -20 Weight 65.9 kg Intake: IV 497 Oral 480 Output: Urine 500 Other: Voiding Method Toilet Toilet Toilet # Voids 1 1 - Exam Physical Exam: Revealed 78-year-old female in no distress. On room air. Head: Atraumatic, normocephalic. HEENT:[Neck is supple.] [No neck masses.] [No thyromegaly.] [No JVD.] Chest: [Clear throughout, no crackles, no rhonchi, no wheezes.] Cardiac Exam: [Normal S1 and S2, no S3 gallop, no murmur.] Abdomen: [Soft, nontender, no megaly, no rebound, no guarding, normal bowel sounds.] Extremities: [No clubbing, no edema, no cyanosis.] Neurological Exam: [No focal neurologic deficit.] Alert and oriented 3. Psychiatric: Normal mood affect and normal mental status examination. Skin: No rashes. Musculoskeletal no deformities, good muscle tone, good strength bilaterally. - Labs CBC & Chem 7: 11/22/18 05:25 11/22/18 05:25 Labs: Abnormal Lab Results - Last 24 Hours (Table) 11/22/18 11/22/18 Range/Units 05:25 05:25 RBC 3.66 L (3.80-5.40) m/uL MCV 100.7 H (80.0-100.0) fL Plt Count 130 L (150-450) k/uL Sodium 136 L (137-145) mmol/L Chloride 108 H (98-107) mmol/L Calcium 8.2 L (8.4-10.2) mg/dL Assessment and Plan Assessment: #1 Chest pain and a patient found to have a subacute inferior wall myocardial infarction with evidence of Q waves and post infarction angina. Status post stenting of the RCA. #2 Chronic and ongoing heavy tobacco dependence. #3 History of bilateral pulmonary nodules status post navigational bronchoscopy with biopsies negative for malignancy. PET scan in 2017 revealed no suspicious uptake in the lungs. #4 PET positive uptake in the left kidney suspicious for renal cell carcinoma in 2017. #5 PET positive uptake in the left ovary in 2017. #6 Hypothyroidism status post radioiodine therapy and maintained on Synthroid. Recommendation: Continue present treatment plan, patient will likely be discharged home in a.m., needs to have follow-up in our office within the next couple of weeks. We will follow the patient on when necessary basis. Time with Patient: Less than 30
[2018-11-22] MEDS ORDERED: LOSARTAN 25 MG TAB PO SCH (21:00)
[2018-11-23 06:19] LABS: Basophils % (A) 0 %; Eosinophils % (A) 0 %; HCT 36.2 % (34.0-46.0); HGB 11.1 gm/dL (11.4-16.0); Hypochromasia Slight; Lymphocytes # (A) 1.6 k/uL (1.0-4.8); Lymphocytes % (A) 30 %; MCH 31.7 pg (25.0-35.0); MCHC 30.6 g/dL (31.0-37.0); MCV 103.4 fL (80.0-100.0); Macrocytosis Slight; Mean Platelet Volume 7.3; Monocytes # (A) 0.4 k/uL (0-1.0); Monocytes % (A) 7 %; Neutrophils # (A) 3.3 k/uL (1.3-7.7); Neutrophils % (A) 60 %; Platelet Count 145 k/uL (150-450); RBC 3.51 m/uL (3.80-5.40); RDW 13.6 % (11.5-15.5); WBC 5.5 k/uL (3.8-10.6)
[2018-11-23] MEDS: LEVOTHYROXINE 112 MCG TAB PO SCH (06:33)
[2018-11-23] MEDS: METOPROLOL TARTRATE 12.5 MG TAB PO SCH (09:04)
[2018-11-23] MEDS: ASPIRIN 81 MG PO SCH (09:04)
[2018-11-23] MEDS: ATORVASTATIN 40 MG TAB PO SCH (09:04)
[2018-11-23] MEDS: CLOPIDOGREL 75 MG TAB PO SCH (09:04)
[2018-11-23 11:50] VITALS: BMI 24.5
[2018-11-23 12:01] VITALS: BP 126/58; PULSE 63; RESP 16; TEMP 97.5
--- NOTE | 2018-11-23 12:24 | P.PN ---
Subjective Progress Note Date: 11/23/18 Principal diagnosis: Chest pressure, shortness of breath This is a very pleasant 78-year-old female patient who follows with CAMDEN Curiel. She has a history of DVT, hypothyroidism, chronic obstructive pulmonary disease, chronic and ongoing heavy tobacco dependence. She had been seen by Dr. Peña in the past. In 2017 she was found to have bilateral upper lobe nodules and she did undergo navigational bronchoscopy with biopsies that were negative for malignancy. There was still some suspicion and he ordered a PET scan which was negative regarding the lungs however there were uptake in the left kidney suspicious for renal cell carcinoma as well as in the left ovary and she was recommended both urology and oncology follow-up. He did give her a copy of the PET scan. She did not return to our office since August 2016. She was transferred here to the emergency room from [facility] yesterday with intermittent chest pain that started 2 days prior to her arrival. Labs and [place] revealed a troponin of 4.[address] elevation but not significant to be called a STEMI. She was placed on heparin and transferred here for the same. She had been seen and evaluated by cardiology and was felt to have had a inferior wall myocardial infarction greater than 48 hours ago. She is seen today in consultation on the selective care unit. She is currently awake and alert in no acute distress. Denies any worsening shortness of breath, cough or congestion. Chest x-ray shows some scarring versus atelectasis in the left lung base otherwise clear. White count 8.1. Hemoglobin 13.1. Creatinine 0.68. Troponin 2.83, 3.15. TSH 11.00. Free T4 1 0.28. She is currently nothing by mouth for pending cardiac catheterization. On 11/23/2018 patient seen in follow-up on selective care unit, she is awake and alert, denies any distress, no complaints of chest pain, or shortness of breath, lung sounds are clear, patient is on room air, her pulse ox is 96%, sinus rhythm sinus bradycardia on the monitor with a rate of 56 BPM, afebrile, she is on Plavix and aspirin, Lipitor, losartan, and metoprolol. Patient has been tolerating ambulation, or have been no acute events overnight, patient is status post PTCA and stenting of the mid RCA with a drug-eluting stent. Objective - Vital Signs Vital signs: Vital Signs Temp 97.5 F L 11/23/18 12:00 Pulse 63 11/23/18 12:00 Resp 16 11/23/18 12:00 BP 126/58 11/23/18 12:00 Pulse Ox 96 11/23/18 12:00 Intake & Output 11/22/18 11/23/18 11/23/18 18:59 06:59 18:59 Intake Total 720 1185 240 Output Total 500 Balance 220 1185 240 Weight 67 kg 67 kg Intake: Intake, IV Titration 225 Amount Sodium Chloride 0.9% 1, 225 000 ml @ 75 mls/hr IV . [id number] CORRINE Rx#:[id number] Oral 720 960 240 Output: Urine 500 Other: Voiding Method Toilet Toilet Toilet # Voids 1 - Exam GENERAL EXAM: Alert, active, pleasant, 78-year-old white female, on room air with a pulse ox of 96% comfortable in no apparent distress. HEAD: Normocephalic/atraumatic. EYES: Normal reaction of pupils, equal size. Conjunctiva pink, sclera white. NOSE: Clear with pink turbinates. THROAT: No erythema or exudates. NECK: No masses, no JVD, no thyroid enlargement, no adenopathy. CHEST: No chest wall deformity. Symmetrical expansion. LUNGS: Equal air entry with no crackles, wheeze, rhonchi or dullness. CVS: Regular rate and rhythm, normal S1 and S2, no gallops, no murmurs, no rubs ABDOMEN: Soft, nontender. No hepatosplenomegaly, normal bowel sounds, no guarding or rigidity. EXTREMITIES: No clubbing, no edema, no cyanosis, 2+ pulses and upper and lower extremities. MUSCULOSKELETAL: Muscle strength and tone normal. SPINE: No scoliosis or deformity SKIN: No rashes CENTRAL NERVOUS SYSTEM: Alert and oriented -3. No focal deficits, tone is normal in all 4 extremities. PSYCHIATRIC: Alert and oriented -3. Appropriate affect. Intact judgment and insight. - Labs CBC & Chem 7: 11/23/18 05:38 11/22/18 05:25 Labs: Abnormal Lab Results - Last 24 Hours (Table) 11/23/18 Range/Units 05:38 RBC 3.51 L (3.80-5.40) m/uL Hgb 11.1 L (11.4-16.0) gm/dL MCV 103.4 H (80.0-100.0) fL MCHC 30.6 L (31.0-37.0) g/dL Plt Count 145 L (150-450) k/uL Assessment and Plan Plan: Assessment: #1 Chest pain and a patient found to have a subacute inferior wall myocardial infarction with evidence of Q waves and post infarction angina. #2 Chronic and ongoing heavy tobacco dependence. #3 History of bilateral pulmonary nodules status post navigational bronchoscopy with biopsies negative for malignancy. PET scan in 2017 revealed no suspicious uptake in the lungs. #4 PET positive uptake in the left kidney suspicious for renal cell carcinoma in 2017. #5 PET positive uptake in the left ovary in 2017. #6 Hypothyroidism status post radioiodine therapy and maintained on Synthroid. Plan: Patient is doing well, no acute events overnight, no complaints of chest pain or shortness of breath, tolerating ambulation, vital signs are stable, anticipate discharge home today. Importance of complete smoking cessation was stressed. She'll need outpatient follow-up in the office once recovered, and she'll need outpatient PFT, for suspected COPD. I performed a history & physical examination of the patient and discussed their management with my nurse practitioner, Stella Arenas. I reviewed the nurse practitioner's note and agree with the documented findings and plan of care. Lung sounds are positive for clear breath sounds. The findings and the impression was discussed with the patient. I attest to the documentation by the nurse practitioner. Time with Patient: Less than 30
--- NOTE | 2018-11-23 14:35 | P.DS ---
Providers Date of admission: 11/20/18 17:31 Expected date of discharge: 11/23/18 Attending physician: Shira López Consults: 11/20/18 17:32 Consult Physician Urgent Consulting Provider: [facility] Consult Reason/Comments: NSTEMI Do you want consulting provider notified?: Yes 11/21/18 07:15 Consult Physician Routine Consulting Provider: Travis Peña Reason/Comments: NSTEMI Do you want consulting provider notified?: Yes Primary care physician: Danny Conteh [facility] Course: Final diagnosis Acute non-ST elevation myocardial infarction Possible acute systolic dysfunction secondary to myocardial infarction, not in any acute heart failure exacerbation Nicotine abuse Hypothyroidism History of DVT COPD without any acute exacerbation Discharge disposition Patient is being discharged in a stable condition with guarded prognosis to home and will follow-up with cardiology in 1-2 weeks. Patient will also follow-up with Danny Conteh primary care provider upon discharge. Total time taken is 35 minutes. History of present illness This is a 78-year-old female who was admitted for non-ST elevation myocardial infarction and was being closely monitored. Cardiology and pulmonary were following closely. During hospitalization patient underwent cardiac catheterization with stents placed in the RCA. Patient EF is approximately 45%. Patient states that she feels much better and would like to go home today. Per cardiology recommendations patient is stable for discharge today and is to follow-up in 1-2 weeks in the outpatient setting. Patient denies any chest pain, shortness of breath, or palpitations at this time. Patient is afebrile. Patient denies any nausea or vomiting and is tolerating diet. Discussed with the patient at length today about smoking cessation. Patient states that she will try. Currently patient's condition is stable with much improvement and will be going home today. Guarded prognosis. On exam vital signs are stable. Temp is 97.5F, pulse is 63, respirations are 16, blood pressure is 126/58, oxygen saturation is 96% on room air. Cardio S1 and S2 are muffled. Respiratory system shows mild expiratory wheezing. Abdomen is soft, thin, and nontender. Nervous system shows no focal deficits. Please refer to medication reconciliation sheet for a list of medications. Patient Condition at Discharge: Stable Plan - Discharge Summary Discharge Rx Participant: No New Discharge Prescriptions: New Losartan [Cozaar] 12.5 mg PO HS 30 Days #30 tab Atorvastatin [Lipitor] 40 mg PO DAILY 30 Days #30 tab Metoprolol Tartrate [Lopressor] 12.5 mg PO BID 60 Days #60 tab Clopidogrel [Plavix] 75 mg PO DAILY 30 Days #30 tab Continue Aspirin 81 mg PO AC-LUNCH Levothyroxine Sodium [Synthroid] 112 mcg PO DAILY Calcium Carbonate [Calcium] 1,200 mg PO AC-LUNCH Cholecalciferol (Vitamin D3) [Vitamin D3] 2,000 unit PO AC-LUNCH Discharge Medication List Aspirin 81 mg PO AC-LUNCH 04/19/16 [History] Calcium Carbonate [Calcium] 1,200 mg PO AC-LUNCH 11/20/18 [History] Cholecalciferol (Vitamin D3) [Vitamin D3] 2,000 unit PO AC-LUNCH 11/20/18 [History] Levothyroxine Sodium [Synthroid] 112 mcg PO DAILY 11/20/18 [History] Atorvastatin [Lipitor] 40 mg PO DAILY 30 Days #30 tab 11/23/18 [Rx] Clopidogrel [Plavix] 75 mg PO DAILY 30 Days #30 tab 11/23/18 [Rx] Losartan [Cozaar] 12.5 mg PO HS 30 Days #30 tab 11/23/18 [Rx] Metoprolol Tartrate [Lopressor] 12.5 mg PO BID 60 Days #60 tab 11/23/18 [Rx] Follow up Appointment(s)/Referral(s): Tanmay Perez MD [STAFF PHYSICIAN] - 1 Week (Office will call with a follow up appointment.) Cari Loomis NPC [Nurse Practitioner] - 3 Weeks Danny Conteh NPC [Primary Care Provider] - 11/26/18 10:15 am Patient Instructions/Handouts: Heart Healthy Diet (DC), After Radial Heart Catheterization (GEN) Activity/Diet/Wound Care/Special Instructions: Activity Limited until follow-up Continue current heart healthy diet Avoid tobacco use Follow-up with primary care provider upon discharge Follow-up with senior commissary agent in 1-2 weeks as discussed and scheduled Discharge Disposition: HOME SELF-CARE
== END 2018-11-23 12:58 | disposition home or self-care (01) | DRG 247 ==
LOC: EC 15:28 → 3SCARD 17:31
PROVIDERS: ADMIT Internal Medicine; ATTEND Internal Medicine
PROC: B2111ZZ Fluoroscopy of Multiple Coronary Arteries using Low Osmolar Contrast (ICD-10-PCS; 2018-11-21)
PROC: 027034Z Dilation of Coronary Artery, One Artery with Drug-eluting Intraluminal Device, Percutaneous Approach (ICD-10-PCS; principal; 2018-11-21 12:21)
PROC: 4A023N7 Measurement of Cardiac Sampling and Pressure, Left Heart, Percutaneous Approach (ICD-10-PCS; 2018-11-21 12:21)
DX: I21.4 Non-ST elevation (NSTEMI) myocardial infarction (principal); I23.7 Postinfarction angina; I50.20 Unspecified systolic (congestive) heart failure; I21.19 ST elevation (STEMI) myocardial infarction involving other coronary artery of inferior wall; I25.118 Atherosclerotic heart disease of native coronary artery with other forms of angina pectoris; F17.210 Nicotine dependence, cigarettes, uncomplicated; D69.6 Thrombocytopenia, unspecified; E03.9 Hypothyroidism, unspecified; E78.5 Hyperlipidemia, unspecified; I25.5 Ischemic cardiomyopathy; J43.9 Emphysema, unspecified; Z79.02 Long term (current) use of antithrombotics/antiplatelets; Z79.82 Long term (current) use of aspirin; Z79.890 Hormone replacement therapy; Z79.899 Other long term (current) drug therapy; Z82.49 Family history of ischemic heart disease and other diseases of the circulatory system; Z86.711 Personal history of pulmonary embolism; Z86.718 Personal history of other venous thrombosis and embolism; Z81.1 Family history of alcohol abuse and dependence; Z71.6 Tobacco abuse counseling
CPT/HCPCS: 36415; 71045; 80048; 80053; 84439; 84443; 84484; 85025; 85379; 85730; 93005; 93306; 93458; C1874

== ENCOUNTER 2018-12-18 18:35 | Inpatient (IN) | payer MEDICARE ==
[2018-12-18] MEDS ORDERED: HEPARIN SODIUM,PORCINE 5,000 UNIT/ML 1 ML VIAL IV ONE (22:09)
[2018-12-18] MEDS ORDERED: HEPARIN SODIUM,PORCINE 5,000 UNIT/ML 1 ML VIAL IV PRN (22:09)
[2018-12-18] MEDS ORDERED: NITROGLYCERIN SL TABS 0.4 MG TAB SUBLINGUAL PRN (22:16)
[2018-12-18] MEDS: HEPARIN SOD,PORK IN 0.45% NACL 25,000 UNIT in 0.45% NACL 1 250ML.BAG IV SCH ×2 (22:22→22:25)
[2018-12-18 22:56] LABS: Basophils % (A) 1 %; Eosinophils % (A) 1 %; HCT 37.2 % (34.0-46.0); HGB 12.4 gm/dL (11.4-16.0); Lymphocytes % (A) 40 %; MCH 32.1 pg (25.0-35.0); MCHC 33.4 g/dL (31.0-37.0); Mean Platelet Volume 6.6; Monocytes # (A) 0.3 k/uL (0-1.0); Monocytes % (A) 5 %; Neutrophils # (A) 2.5 k/uL (1.3-7.7); Neutrophils % (A) 51 %; Platelet Count 167 k/uL (150-450); RBC 3.88 m/uL (3.80-5.40); WBC 4.9 k/uL (3.8-10.6)
[2018-12-18 23:04] LABS: Partial Thromboplastin Time 81.3 sec (22.0-30.0); Prothrombin Time 10.6 sec (9.0-12.0)
[2018-12-19 06:36] LABS: Basophils % (A) 0 %; Eosinophils % (A) 1 %; HCT 37.7 % (34.0-46.0); HGB 12.4 gm/dL (11.4-16.0); Lymphocytes # (A) 1.2 k/uL (1.0-4.8); Lymphocytes % (A) 17 %; MCH 31.5 pg (25.0-35.0); MCHC 32.9 g/dL (31.0-37.0); MCV 95.9 fL (80.0-100.0); Mean Platelet Volume 6.9; Monocytes # (A) 0.4 k/uL (0-1.0); Monocytes % (A) 6 %; Neutrophils # (A) 5.3 k/uL (1.3-7.7); Neutrophils % (A) 75 %; Platelet Count 158 k/uL (150-450); RBC 3.93 m/uL (3.80-5.40); WBC 7.1 k/uL (3.8-10.6)
[2018-12-19 06:38] LABS: Calcium 8.7 mg/dL (8.4-10.2); Potassium 4.4 mmol/L (3.5-5.1)
[2018-12-19] MEDS: METOPROLOL TARTRATE 12.5 MG TAB PO SCH ×2 (08:38→21:28)
[2018-12-19] MEDS: CLOPIDOGREL 75 MG TAB PO SCH (08:38)
[2018-12-19] MEDS: ATORVASTATIN 40 MG TAB PO SCH (08:38)
[2018-12-19 11:23] VITALS: BMI 24.3
[2018-12-19] MEDS: CALCIUM CARBONATE 500 MG CHEWABLE PO SCH (12:31)
[2018-12-19] MEDS: ASPIRIN 81 MG PO SCH (12:31)
--- NOTE | 2018-12-19 12:42 | XR ---
EXAMINATION TYPE: XR chest 1V portable DATE OF EXAM: 12/19/2018 HISTORY: chf. REFERENCE: Previous study dated 11/21/2018. FINDINGS: Lung volumes are prominent. Heart size upper limits of normal. There is minimal bibasilar a irspace disease. Pleural spaces are clear. IMPRESSION: 1. COPD. 2. MINIMAL BIBASILAR AIRSPACE DISEASE WHICH MAY REPRESENT ATELECTASIS OR PNEUMONIA.
[2018-12-19 13:37] LABS: T4, Free (Free Thyroxine) 1.07 ng/dL (0.78-2.19)
[2018-12-19 14:44] LABS: Basophils % (A) 1 %; Eosinophils % (A) 0 %; HCT 35.8 % (34.0-46.0); HGB 11.9 gm/dL (11.4-16.0); Lymphocytes # (A) 1.6 k/uL (1.0-4.8); Lymphocytes % (A) 26 %; MCH 31.7 pg (25.0-35.0); MCHC 33.2 g/dL (31.0-37.0); MCV 95.3 fL (80.0-100.0); Mean Platelet Volume 6.7; Monocytes # (A) 0.4 k/uL (0-1.0); Monocytes % (A) 6 %; Neutrophils # (A) 3.9 k/uL (1.3-7.7); Neutrophils % (A) 65 %; Platelet Count 147 k/uL (150-450); RBC 3.76 m/uL (3.80-5.40); RDW 13.1 % (11.5-15.5)
[2018-12-19 15:11] LABS: Calcium 8.6 mg/dL (8.4-10.2); Potassium 4.2 mmol/L (3.5-5.1)
--- NOTE | 2018-12-19 16:05 | HP ---
HISTORY AND PHYSICAL DATE OF SERVICE: 12/19/2018 CHIEF COMPLAINT: Chest pain. HISTORY OF PRESENT ILLNESS: This 78-year-old woman with a past medical history of CAD, COPD, DVT, COPD, history of coronary artery disease/ stent was recently admitted to [facility]. The patient had acute non ST-segment elevation myocardial infarction. Patient had cardiac catheterization and as well as PTCA stenting of the RCA with drug-eluting stent with excellent results. The patient went home. Currently the patient complaining of chest pain, left shoulder pain, left arm pain without any relation to exertion and radiating to the left arm and the patient went to [facility] and subsequently directly admitted to [facility] after discussion with the physician on-call at this time. Cardiology evaluation in progress. The chest x-ray showed some atelectasis. Troponins negative so far. There is no history of fever, rigors or chills. No history of headache, loss of consciousness, seizures at this time. PAST MEDICAL HISTORY: History of CAD, stent, myocardial infarction, COPD, history of DVT, history of chronic obstructive pulmonary disease. MEDICATIONS: Prior to admission home medications are: 1. Lopressor 12.5 mg p.o. b.i.d. 2. Synthroid 112 mcg p.o. daily. 3. Plavix 75 mg p.o. daily. 4. Lipitor 40 mg p.o. daily. 5. Cozaar 12.5 mg q.h.s. 6. Vitamin D3 2000 daily. 7. Calcium 1.2 mg a.c. lunch. 8. Aspirin 81 mg. ALLERGIES: None. FAMILY HISTORY: History of CAD, hypertension, CABG in the father. SOCIAL HISTORY: History of smoking, continued ongoing. REVIEW OF SYSTEMS: ENT diminished vision. Diminished hearing. CARDIOVASCULAR SYSTEM: As mentioned earlier. RESPIRATORY: As mentioned earlier. GI no nausea or vomiting. no dysuria. NERVOUS SYSTEM: No numbness or weakness. ALLERGY: No history of asthma or hayfever. MUSCULOSKELETAL as mentioned earlier. HEMATOLOGY/ONCOLOGY: No history of anemia. ENDOCRINE: Hypothyroidism. CONSTITUTIONAL: As mentioned earlier. DERMATOLOGY: Negative. PSYCHIATRY: As mentioned earlier. PHYSICAL EXAMINATION: Alert and oriented x3. Pulse 68. Blood pressure 96/50, respiration 20, temp 98.4, pulse ox 94% on 2 L. HEENT: Conjunctivae normal. Oral mucosa moist. NECK is no jugular venous distention. No carotid bruit. No lymph node enlargement. Cardiovascular system: S1, S2 muffled. No S3, no S4. RESPIRATORY: Breath sounds diminished in the bases. No rhonchi. No crackles. ABDOMEN: Soft, nontender. No mass palpable. LEGS: No edema. No swelling. NERVOUS SYSTEM: Higher functions as mentioned earlier. Moves all 4 limbs. No focal motor or sensory deficits. LYMPHATICS: No lymph nodes palpable in the neck, axillae or groin. SKIN: No ulcer, no rash. No bleeding. JOINTS: No active deforming arthropathy. LABS: WBC 7.2, hemoglobin 12.4. TSH is 5.34. Free T4 is 1.07. Troponin is less than 0.012. ASSESSMENT: 1. Chest pain possible unstable angina. 2. History of recent acute non-ST segment elevation myocardial infarction. Cardiac catheterization and [employer] stenting of the mid RCA with drug-eluting stent. 3. History of chronic obstructive pulmonary disease. 4. History of deep vein thrombosis. 5. History of hypothyroidism. 6. History of tonsillectomy. 7. History of continued ongoing nicotine dependence. 8. History of bilateral pulmonary nodules, being followed up in the outpatient setting with PET scans and other workup. 9. FULL CODE. RECOMMENDATIONS AND DISCUSSION: In this 78-year-old woman who presented with multiple complex medical issues, I would recommend continue the current medications, management and symptomatic treatment. Unstable angina protocol. Cardiology consultation. We will monitor the patient closely. The home medications will be continued. Repeat labs will be arranged. Initial troponin appears to be negative. I would also recommend continued outpatient followup regarding the pulmonary abnormalities detailed above. All charts reviewed at length. Prognosis guarded. Discussed with the patient who understands and agrees. MMODL / IJN: [id number] /
--- NOTE | 2018-12-19 16:11 | P.CRDCN ---
History of Present Illness Consult date: 12/19/18 Reason for Consult (text): Chest pain Chief complaint: Chest pain History of present illness: HISTORY OF PRESENT ILLNESS AND PLAN: This is a 78-year-old female from with history of hypothyroid s/p radioiodine ablation, DVT, COPD with current tobacco use, lung nodules negative for CA and recent admission for chest pain status post PCI of RCA with Dr. EVELYN Perez on 11/21/2018. Patient presents in the emergency department with complaints of excessive fatigue at home with left lower chest pressure that radiates down the arm into her elbow. Patient describes chest pain as a dull ache that is there all the time. Patient is with her friend/DPOA who helps with recent historical events. Friend states patient's home heart rate and BP has been low recently, HR 40's and BP 80's systolic. Blood pressures at home use to range 115-130 systolic. Patient currently lying in bed in no acute distress, states that her arm and elbow continued to be sore. Patient states she has been compliant with all medications at home including prescribed aspirin and Plavix. Friend helps with caregiving for patient's demented as well. Friend states patient has poor appetite at home. Patient states she is supposed to have a repeat echocardiogram at [facility] on January 04 and follow-up for office visit on January 18. Advised patient to keep appointments. SIGNIFICANT PAST MEDICAL HISTORY: Hypothyroid s/p radioiodine ablation, DVT, COPD, tobacco use smoking 10-15 cigarettes dialy, lung nodules negative for CVA and CAD s/p PCI to RCA on 11/21/18. PAST SURGICAL HISTORY: See list. EKG shows Sinus rhythm on monitors heart rate 83. BP currently 138/70. Afebrile. SIGNIFICANT LABORATORY VALUES: TSH 5.340 otherwise WNL. Troponins negative x 1. Chest x-ray shows COPD with bibasilar airspace disease possible pneumonia or atelectasis. Most recent Echo 11/21/18 = EF 45%, basal inferior LV wall hypokinesia. Mild MR. Mild TR. REVIEW OF SYSTEMS: CONSTITUTIONAL: EYES: Denies blurred vision. Denies blurred vision or vision changes. Denies eye pain. EARS, NOSE, MOUTH & THROAT: Denies headache. Denies sore throat. Denies ear pain Denies hemoptysis. CARDIOVASCULAR: C/O chest pain/pressure on LEFT chest wall that radiated down arm to elbow. Denies shortness of breath. Denies orthopnea. Denies PND. Denies palpitations. RESPIRATORY: Denies cough. Denies shortness of breath. GASTROINTESTINAL: Denies abdominal pain or distention. Denies diarrhea. Denies constipation. Denies nausea. Denies vomiting. MUSCULOSKELETAL: C/O arm/elbow soreness/myalgia. INTEGUMENTARY: Denies pruitis. Denies rash. ENDOCRINE: Complains of fatigue. Denies weight change. Denies polydipsia. Denies polyurina Denies heat/cold intolerance. GENITOURINARY:Denies burning, hematuria or urgency with micturation. HEMATOLOGIC: Denies history of anemia. Denies bleeding. NEUROLOGIC: Denies numbness. Denies tingling. Denies weakness. PSYCHIATRIC: Denies anxiety. Denies depression. PHYSICAL EXAM: VITAL SIGNS: VSS currently. GENERAL: Well developed, in no acute distress. HEENT: Head is atraumatic, normocephalic. Pupils are equal, round. Extra ocular movements intact. Mucous membranes moist. Neck supple. No JVD. No carotid bruit. No thyromegaly. LUNGS: Clear to auscultation no wheezes, rales or rhonchi. No chest wall tenderness on palpation or with deep breathing. HEART: Regular rate and rhythm, no rubs or gallops. S1 and S2 heard. No murmur. ABDOMEN: Abdominal exam, WNL. Bowel sounds x4 quads. Soft, non-tender, without masses, organomegaly, or abdominal aorta enlargement. EXTREMITIES/VASCULAR: Extremities have easily palpable radial, femoral, dorsalis pedis and posterior tibial pulses. No cyanosis, calf tenderness. No BLE edema. RIGHT WRIST access site CDI, completely healed. NEUROLOGIC: Patient is awake, alert and oriented x3. No focal neurologic abnormalities. FINAL IMPRESSION: 1. Atypical chest pain. 2. Recent STEMI inferior wall PR. 3. CAD status post PCI to RCA on 11/21/2018. 4. COPD with current tobacco use. 5. Hypothyroidism status post radioiodine ablation. 6. DVT PLAN: Decrease metoprolol tartrate to 12.5 mg in a.m. only. Continue home Synthroid 112 g daily. Continue same all other medical/medication management. Cautious IV fluid and blood pressure control. Heart healthy diet. Keep outpatient appointment for echocardiogram on 01/04/2019 and follow-up visit on January 18, 2019. Will continue to follow. Nurse Practitioner note has been reviewed by the Physician. Signing provider agrees with the documented findings, assessment and plan of care. Past Medical History Past Medical History: Coronary Artery Disease (CAD), COPD, Deep Vein Thrombosis (DVT), Thyroid Disorder Additional Past Medical History / Comment(s): emphysema and area in lung found on ct scan,freq cough,hx dvt lt leg approx 10 yrs History of Any Multi-Drug Resistant Organisms: None Reported Past Surgical History: Heart Catheterization With Stent, Tonsillectomy, Tubal Ligation Additional Past Surgical History / Comment(s): nodules removed from thryoid,jey cataracts Past Anesthesia/Blood Transfusion Reactions: No Reported Reaction Additional Past Anesthesia/Blood Transfusion Reaction / Comment(s): no hx blood transfusion Date of Last Stent Placement:: 11/21/18 Past Psychological History: No Psychological Hx Reported Smoking Status: Current every day smoker Past Alcohol Use History: None Reported Additional Past Alcohol Use History / Comment(s): 1ppd,started smoking at age 16 Past Drug Use History: None Reported - Past Family History Mother Family Medical History: Coronary Artery Disease (CAD), Hypertension Additional Family Medical History / Comment(s): CABG,breathing problems, with complications of fx back Daughter(s) Family Medical History: Myocardial Infarction (PR) Additional Family Medical History / Comment(s): at age 45 Father Additional Family Medical History / Comment(s): alcoholism Medications and Allergies Home Medications Medication Instructions Recorded Confirmed Type Aspirin 81 mg PO AC-LUNCH 04/19/16 12/18/18 History Calcium Carbonate [Calcium] 1,200 mg PO AC-LUNCH 11/20/18 12/18/18 History Cholecalciferol (Vitamin D3) 2,000 unit PO AC-LUNCH 11/20/18 12/18/18 History [Vitamin D3] Levothyroxine Sodium [Synthroid] 112 mcg PO DAILY 11/20/18 12/18/18 History Atorvastatin [Lipitor] 40 mg PO DAILY 30 Days #30 tab 11/23/18 12/18/18 Rx Clopidogrel [Plavix] 75 mg PO DAILY 30 Days #30 tab 11/23/18 12/18/18 Rx Losartan [Cozaar] 12.5 mg PO HS 30 Days #30 tab 11/23/18 12/18/18 Rx Metoprolol Tartrate [Lopressor] 12.5 mg PO BID 60 Days #60 tab 11/23/18 12/18/18 Rx Allergies Allergy/AdvReac Type Severity Reaction Status Date / Time No Known Allergies Allergy Verified 12/18/18 23:04 Physical Exam Vitals: Vital Signs Temp Pulse Resp BP Pulse Ox 12/19/18 08:15 98.4 F 68 20 96/50 94 L 12/19/18 04:00 98.3 F 73 18 138/70 97 12/19/18 00:00 98 F 68 18 140/66 98 12/18/18 21:15 98.4 F 65 18 133/61 97 Intake and Output 12/18/18 12/19/18 12/19/18 22:59 06:59 14:59 Intake Total 144 253.697 Balance 144 253.697 Intake: Intake, IV Titration 24 73.697 Amount Heparin Sod,Pork in 0.45% 24 73.697 NaCl 25,000 unit In 0.45 % NaCl 1 250ml.bag @ 12 UNITS/KG/HR 8.219 mls/hr IV .Q24H [facility] Rx#: [id number] Oral 120 180 Other: # Voids 2 Weight 68.492 kg 66.4 kg 66.4 kg Results 12/19/18 14:08 12/19/18 14:08 Cardiac Enzymes 12/19/18 Range/Units 05:54 Troponin I <0.012 (0.000-0.034) ng/mL Coagulation 12/18/18 12/19/18 Range/Units 22:23 05:54 PT 10.6 (9.0-12.0) sec APTT 81.3 H 34.7 H (22.0-30.0) sec CBC 12/18/18 12/19/18 Range/Units 22:23 05:55 WBC 4.9 7.1 (3.8-10.6) k/uL RBC 3.88 3.93 (3.80-5.40) m/uL Hgb 12.4 12.4 (11.4-16.0) gm/dL Hct 37.2 37.7 (34.0-46.0) % Plt Count 167 158 (150-450) k/uL Comprehensive Metabolic Panel 12/19/18 Range/Units 05:54 Sodium 138 (137-145) mmol/L Potassium 4.4 (3.5-5.1) mmol/L Chloride 105 (98-107) mmol/L Carbon Dioxide 30 (22-30) mmol/L BUN 16 (7-17) mg/dL Creatinine 0.75 (0.52-1.04) mg/dL Glucose 97 (74-99) mg/dL Calcium 8.7 (8.4-10.2) mg/dL Current Medications Generic Name Dose Route Start Last Admin Trade Name Freq PRN Reason Stop Dose Admin Aspirin 81 mg 12/19/18 12:30 12/19/18 12:31 Aspirin PO 81 mg AC-LUNCH CORRINE Administration Atorvastatin Calcium 40 mg 12/19/18 09:00 12/19/18 08:38 Lipitor PO 40 mg DAILY CORRINE Administration Calcium Carbonate/Glycine 500 mg 12/19/18 12:30 12/19/18 12:31 Tums PO 500 mg AC-LUNCH CORRINE Administration Clopidogrel Bisulfate 75 mg 12/19/18 09:00 12/19/18 08:38 Plavix PO 75 mg DAILY CORRINE Administration Heparin Sodium (Porcine) 0 unit 12/18/18 22:09 12/19/18 08:39 Heparin IV 4,000 unit PER PROTOCOL PRN Administration Low PTT Protocol Heparin Sodium/Sodium Chloride 250 mls @ 8.219 mls/hr 12/18/18 22:15 12/19/18 07:23 25,000 unit/ Sodium Chloride IV 15 units/kg/hr .Q24H CORRINE 10.274 mls/hr Titration Protocol 12 UNITS/KG/HR Metoprolol Tartrate 12.5 mg 12/19/18 09:00 12/19/18 08:38 Lopressor PO 12.5 mg BID CORRINE Administration Nitroglycerin 0.4 mg 12/18/18 22:16 Nitrostat SUBLINGUAL Q5M PRN Chest Pain Intake and Output 12/18/18 12/19/18 12/19/18 22:59 06:59 14:59 Intake Total 144 253.697 Balance 144 253.697 Intake: Intake, IV Titration 24 73.697 Amount Heparin Sod,Pork in 0.45% 24 73.697 NaCl 25,000 unit In 0.45 % NaCl 1 250ml.bag @ 12 UNITS/KG/HR 8.219 mls/hr IV .Q24H [facility] Rx#: [id number] Oral 120 180 Other: # Voids 2 Weight 68.492 kg 66.4 kg 66.4 kg Patient Weight 12/20/18 05:59 Weight 66.4 kg 12/19/18 05:55 12/19/18 05:54 EKG Interpretations (text) Sinus Rhythm
[2018-12-19] MEDS ORDERED: LOSARTAN 25 MG TAB PO SCH (21:00)
[2018-12-20 04:12] VITALS: RESP 18
[2018-12-20 06:06] LABS: Basophils % (A) 0 %; Eosinophils % (A) 0 %; HCT 37.5 % (34.0-46.0); HGB 12.7 gm/dL (11.4-16.0); Lymphocytes # (A) 1.6 k/uL (1.0-4.8); Lymphocytes % (A) 33 %; MCH 32.2 pg (25.0-35.0); MCHC 33.8 g/dL (31.0-37.0); MCV 95.4 fL (80.0-100.0); Mean Platelet Volume 6.4; Monocytes # (A) 0.4 k/uL (0-1.0); Monocytes % (A) 8 %; Neutrophils # (A) 2.6 k/uL (1.3-7.7); Neutrophils % (A) 55 %; Platelet Count 149 k/uL (150-450); RBC 3.93 m/uL (3.80-5.40); RDW 12.9 % (11.5-15.5); WBC 4.8 k/uL (3.8-10.6)
[2018-12-20 06:25] LABS: African American GFR (CKD) >90 (>60 ml/min/1.73 sqM); Blood Urea Nitrogen 14 mg/dL (7-17); Calcium 8.8 mg/dL (8.4-10.2); Carbon Dioxide 26 mmol/L (22-30); Glucose 94 mg/dL (74-99)
[2018-12-20] MEDS ORDERED: LEVOTHYROXINE 112 MCG TAB PO SCH (06:30)
[2018-12-20 06:32] LABS: Anion Gap 6 mmol/L; Chloride 106 mmol/L (98-107); Potassium 4.2 mmol/L (3.5-5.1); Sodium 138 mmol/L (137-145)
[2018-12-20] MEDS ORDERED: METOPROLOL TARTRATE 12.5 MG TAB PO SCH (09:00)
[2018-12-20] MEDS: ATORVASTATIN 40 MG TAB PO SCH (09:56)
[2018-12-20] MEDS: CLOPIDOGREL 75 MG TAB PO SCH (09:56)
--- NOTE | 2018-12-20 12:00 | P.CN ---
Psychiatric Consult - . Consult date: 12/20/18 Consult:: Chief complaint This is a 78-year-old femalewas admitted to medical floor with shoulder pain. Psychiatry was consulted to evaluate patient for attention seeking behavior. History of presenting illness Patient reports being brought to the hospital after complaining of shoulder pain to her daughter who was visiting patient at home. Patient stated her daughter freaked out and brought her to the hospital. Patient currently states she will never complain about pains and aches due to her daughters behavior stating every body will have aches and pains. Patient reports feeling stressed about being told what to do and what not to do by her friends and her recently appointed POA . Patient claims to have appointed a POA after suffering a heart attack in the beginning of November 2018 at the request of her friends. Patient states she doesnt like to be told what to do and claims her friends and her recently appointed POA tell her what to do and what not to do and feels bothered by it. She denies symptoms of depression and states she is very hopeful person and believes in EVERY THING WILL WORK OUT , ONE DAY AT A TIME. She denies current suicidal or homicidal ideations. She states every body is giving her hard time because takes care of every one financially and gives moral support. She states she has 14 great grand children and claims she baby sits 4 great grandchildren as they live closer to her. When asked who is giving her hard time she stated her friends and her POA. She claims to have stopped supporting her Son-in Law at the request of her friends. She denies history of auditory and visual hallucinations. She denies paranoid ideations stating she trusts every one. She states she is very healthy person and hoping to live into her 90s like her mother who around the age of 94. She stays her family is worried about her health and she claims she is fine. She says her who is in his eighties drives her crazy at times with his progressive alzhiemers disease. But other contreras she syas she gets along well wither and her 45 year old son with who she lives in a private home. She denies symptoms of leobardo or risky behaviors . Per staff patients POA /resort host, Kindra Shepard @ [phone] wanted patient to be evaluated. Past psychiatric history None reported history of hypothyroid s/p radioiodine ablation, DVT, COPD with current tobacco use, lung nodules negative for CA and recent admission for chest pain status post PCI of RCA with Dr. EVELYN Perez on 11/21/2018. Substance use history Claims to have cut down on her smoking to 4-6 cigarettes per day. She states she only smokes when she feels stressed. Denies use of other illicit drugs Legal problems None reported Family psychiatric treatment history She stated her daughter tried to overdose on a bottle of aspirin during her preteen years and none since then. She staetd her teen age son became depressed after witnessing his sister overdosing on aspirin and no problems since then. Medical history history of hypothyroid s/p radioiodine ablation, DVT, COPD with current tobacco use, lung nodules negative for CA and recent admission for chest pain status post PCI of RCA with Dr. EVELYN Perez on 11/21/2018. Social history Born in [place], [place]. Grew up in [facility] , she was 5 years old when her family relocated to [place] [facility] [facility] [facility]. She reports being raised by her mother and step father. Denies history of abuse. She has 4 sisters and one brother. Completed 2 years of community college. for 58 years to her current who is in his eighties. Has four living children. Mental status exam 78 year old woman . She appeared her stated age in fair grooming and hygeiene. She was pleasant and cooperative. She maintains good eye contact. Her speech and thought process linear and goal directed. Her mood is reported as great and affect broad. She denies auditory or visual hallucinations. She denies paranoid ideations. She is alert and oriented x 4. She denies current suicidal or homicidal ideations. Her insight and judgement are fair. Diagnosis No major psychiatric diagnosis. She is not definitely not attention seeking. Plan This is a 78-year-old femalewas admitted to medical floor with shoulder pain. Psychiatry was consulted to evaluate patient for attention seeking behavior. She does not need any psychiatric medications and does not need psychiatric admission,. Thanks for allowing psychiatry to evaluate this patient. Please do not hesitate to contact psychiatry with any concerns. 12/20/18 12:00
[2018-12-20] MEDS: CALCIUM CARBONATE 500 MG CHEWABLE PO SCH (12:23)
[2018-12-20] MEDS: ASPIRIN 81 MG PO SCH (12:23)
[2018-12-20] MEDS ORDERED: CHOLECALCIFEROL 1,000 UNIT TAB PO SCH (12:30)
--- NOTE | 2018-12-20 12:33 | P.PN ---
Subjective Progress Note Date: 12/20/18 Principal diagnosis: Chest pain This is a 78-year-old female from with history of hypothyroid s/p radioiodine ablation, DVT, COPD with current tobacco use, lung nodules negative for CA and recent admission for chest pain status post PCI of RCA with Dr. EVELYN Perez on 11/21/2018. Patient presents in the emergency department with complaints of excessive fatigue at home with left lower chest pressure that radiates down the arm into her elbow. Patient describes chest pain as a dull ache that is there all the time. Patient is with her friend/DPOA who helps with recent historical events. Friend states patient's home heart rate and BP has been low recently, HR 40's and BP 80's systolic. Blood pressures at home use to range 115-130 systolic. Patient currently lying in bed in no acute distress, states that her arm and elbow continued to be sore. Patient states she has been compliant with all medications at home including prescribed aspirin and Plavix. Friend helps with caregiving for patient's demented as well. Friend states patient has poor appetite at home. Patient states she is supposed to have a repeat echocardiogram at [facility] on January 04 and follow-up for office visit on January 18. Advised patient to keep appointments. 12/20/2018 Patient status post PCI to RCA on 11/21/2018. NO ACUTE CORONARY PROCESS. Most recent EF 45%. Patient continues stable with no current complaints of chest pain, chest pressure, shortness of breath or palpitations. Pt up and ambulates in hallway with ease. Patient states left elbow continues to be sore. Troponins negative 2. VSS. 96% on room air. Patient continues sinus rhythm heart rate 64. Most recent labs, WNL. PHYSICAL EXAM: VITAL SIGNS: VSS currently. GENERAL: Well developed, in no acute distress. HEENT: Head is atraumatic, normocephalic. Pupils are equal, round. Extra ocular movements intact. Mucous membranes moist. Neck supple. No JVD. No carotid bruit. No thyromegaly. LUNGS: Clear to auscultation no wheezes, rales or rhonchi. No chest wall tenderness on palpation or with deep breathing. HEART: Regular rate and rhythm, no rubs or gallops. S1 and S2 heard. No murmur. ABDOMEN: Abdominal exam, WNL. Bowel sounds x4 quads. Soft, non-tender, without masses, organomegaly, or abdominal aorta enlargement. EXTREMITIES/VASCULAR: Extremities have easily palpable radial, femoral, dorsalis pedis and posterior tibial pulses. No cyanosis, calf tenderness. No BLE edema. RIGHT WRIST access site CDI, completely healed. NEUROLOGIC: Patient is awake, alert and oriented x3. No focal neurologic abnormalities. FINAL IMPRESSION: 1. Atypical chest pain, no acute coronary process. 2. Recent STEMI inferior wall WA. 3. CAD status post PCI to RCA on 11/21/2018, stable. 4. COPD with current tobacco use. 5. Hypothyroidism status post radioiodine ablation. 6. DVT PLAN: Patient CLEAR FOR DISCHARGE from a Cardiology standpoint. Continue with ASA 81 mg and Plavix 75mg daily for stent protection. Continue same all other medical/medication management. Keep outpatient appointment for echocardiogram on 01/04/2019 and follow-up visit on January 18, 2019. Objective - Vital Signs Vital signs: Vital Signs Temp 97.1 F L 12/20/18 08:00 Pulse 62 12/20/18 08:00 Resp 18 12/20/18 08:00 BP 106/68 12/20/18 08:00 Pulse Ox 94 L 12/20/18 08:00 Intake & Output 12/19/18 12/20/18 12/20/18 19:59 06:59 18:59 Intake Total Output Total Balance Weight Intake: Oral Blood Product Output: Urine Other: # Voids - Labs CBC & Chem 7: 12/20/18 05:07 12/20/18 05:07 Labs: Abnormal Lab Results - Last 24 Hours (Table) 12/19/18 12/19/18 12/20/18 Range/Units 14:08 14:08 05:07 RBC 3.76 L (3.80-5.40) m/uL Plt Count 147 L 149 L (150-450) k/uL Glucose 107 H (74-99) mg/dL
[2018-12-20 14:19] VITALS: BP 85/48; PULSE 80; TEMP 97.7
--- NOTE | 2018-12-21 10:24 | DS ---
DISCHARGE SUMMARY DATE OF SERVICE: 12/21/2018. FINAL DIAGNOSES: 1. Chest pain, possible unstable angina. 2. History of recent acute non-ST segment elevation myocardial infarction, cardiac catheterization, [employer] stenting of the mid RCA with drug-eluting stent. 3. History of chronic obstructive pulmonary disease. 4. Deep vein thrombosis. 5. Hypothyroidism. 6. History of tonsillectomy. 7. History of continued ongoing nicotine dependence. 8. History of bilateral pulmonary nodules, being followed by outpatient setting with PET scans and other workup. 9. FULL CODE. DISCHARGE DISPOSITION: The patient will be discharged in stable condition with guarded prognosis. Cardiology Dr. Orlando Perez cleared the patient for discharge. HISTORY OF PRESENT ILLNESS: This 78-year-old woman with a past medical history of multiple medical problems admitted with chest pain. Myocardial infarction ruled out. Cardiology saw the patient and recommend outpatient setting and psychiatry also saw the patient and found no major psychiatric diagnosis and thought the patient is not definitely attention seeking. Patient improved significantly. Patient discharged in stable condition. Guarded prognosis. On exam, vitals are stable. Cardiovascular: S1, S2. Abdomen soft. Nervous system: No focal deficits. DISCHARGE ADVICE AND MEDICATIONS: 1. Diet is cardiac diet. 2. Activity limited until followup. 3. Follow with Dr. Danny Conteh in 1 week. 4. Follow up with Cardiology as recommended. 5. Possibly outpatient workup. DISCHARGE MEDICATIONS: 1. Ecotrin 81 mg with lunch. 2. Calcium 1200 mg p.o. with lunch. 3. Synthroid 112 mcg p.o. daily. 4. Vitamin D3 2000 a.c. lunch. 5. Cozaar 12.5 mg q.h.s. 6. Lipitor 40 mg daily. 7. Lopressor 12.5 mg p.o. b.i.d. 8. Plavix 75 mg p.o. daily. Once again the patient being discharged in stable condition with guarded prognosis. MMODL / IJN: [id number] /
== END 2018-12-20 14:20 | disposition home health service (06) | DRG 281 ==
LOC: 3SCARD 20:39
PROVIDERS: ADMIT Hospitalist; ATTEND Hospitalist
DX: I21.4 Non-ST elevation (NSTEMI) myocardial infarction (principal); I23.7 Postinfarction angina; I25.110 Atherosclerotic heart disease of native coronary artery with unstable angina pectoris; E03.9 Hypothyroidism, unspecified; F17.210 Nicotine dependence, cigarettes, uncomplicated; J43.9 Emphysema, unspecified; Z79.02 Long term (current) use of antithrombotics/antiplatelets; Z79.890 Hormone replacement therapy; Z79.899 Other long term (current) drug therapy; Z82.49 Family history of ischemic heart disease and other diseases of the circulatory system; Z86.718 Personal history of other venous thrombosis and embolism; Z95.5 Presence of coronary angioplasty implant and graft; I25.2 Old myocardial infarction
CPT/HCPCS: 71045; 80048; 84439; 84443; 84484; 85025; 85610; 85730